=== PATIENT | male | born 1970 | race Caucasian/White ===

== ENCOUNTER 2021-08-31 09:38 | Outpatient (REF) | payer BC, SELFPAY ==
[2021-08-31 10:32] LABS: MANUAL DIFF FLAG NO
[2021-08-31 10:35] LABS: Basophils Percent Auto 0.7 % (0-2); Eosinophils Absolute Auto 0.1 X10*3/uL (0.0-0.4); Eosinophils Percent Auto 1.8 % (0-4); Hematocrit 42.9 % (42.0-52.0); Hemoglobin 14.4 g/dl (14.0-18.0); Imm Gran Abs Auto 0.02 X10*3/uL (0.00-0.03); Imm Gran Pct Auto 0.3 % (0.0-0.4); Lymphocytes Absolute Auto 1.2 X10*3/uL (1.2-4.9); Lymphocytes Percent Auto 19.3 % (20-40); Mean Corpuscular HGB Conc 33.6 g/dl (31.0-36.0); Mean Corpuscular Hemoglobin 28.3 pg (27.0-33.0); Mean Corpuscular Volume 84.3 fL (80.0-98.0); Mean Platelet Volume 10.3 fL (9.4-12.4); Monocytes Absolute Auto 0.5 X10*3/uL (0.1-1.2); Monocytes Percent Auto 7.8 % (2-11); Neutrophils Absolute Auto 4.2 x10*3/uL (2.0-8.3); Neutrophils Percent Auto 70.1 % (45-73); Platelet Count 256 X10*3/uL (160-400); Red Blood Count 5.09 X10*6/uL (4.60-5.80); Red Cell Distribution Width 12.7 % (11.0-16.0); White Blood Count 6.1 X10*3/uL (4.8-10.8)
[2021-08-31 11:16] LABS: Alanine Aminotransferase 60 U/L (0-40); Albumin Level 4.3 g/dL (3.5-5.0); Alkaline Phosphatase 81 U/L (39-117); Aspartate Amino Transferase 37 U/L (5-37); Bilirubin Direct 0.2 mg/dL (0.0-0.5); Bilirubin Total 0.5 mg/dL (0.0-1.0); Total Protein 7.4 g/dL (6.5-8.0)
== END 2021-08-31 09:39 | disposition home or self-care (01) ==
LOC: HO.10HDL 09:38
PROVIDERS: PCP Internal Medicine; Visit Provider Internal Medicine
DX: R10.84 Generalized abdominal pain (principal)
CPT/HCPCS: 36415; 80076; 85025

== ENCOUNTER 2021-10-17 07:56 | Outpatient (REF) | payer BC, SELFPAY ==
--- NOTE | ~2021-10-17 | US_ITS ---
EXAMINATION: US ABDOMEN COMPLETE CLINICAL INFORMATION: Abdominal pain. COMPARISON: None TECHNIQUE: Real-time imaging of the abdominal viscera. FINDINGS: PANCREAS: Normal. ABDOMINAL AORTA: The midabdominal aorta is not well visualized. The upper and distal abdominal aorta are normal in caliber. INFERIOR VENA CAVA: Visualized portions are normal. LIVER: The liver is normal in size. The liver contour is normal. Liver echotexture is increased. No focal hepatic lesion. There is no intrahepatic biliary duct dilatation seen. GALLBLADDER: Normal. The gallbladder is physiologically distended without evidence of stones, sludge, polyps, wall thickening or pericholecystic fluid. COMMON BILE DUCT: Normal in caliber measuring 0.4 cm in diameter. RIGHT KIDNEY: There is a small cyst in the midpole measuring 5 mm. No hydronephrosis or renal calculi. The kidney measures 12.4 cm in maximum dimension. LEFT KIDNEY: Normal. No hydronephrosis. No renal calculi or focal parenchymal lesions. The kidney measures 10.8 cm in maximum dimension. SPLEEN: Normal. The spleen measures 11.5 cm in maximum dimension. FREE FLUID: None. US/US abdomen complete IMPRESSION: Echogenic liver probably representing fatty infiltration. Small right renal cyst. Limited visualization of the mid abdominal aorta.
== END 2021-10-17 07:57 | disposition home or self-care (01) ==
LOC: HO.US 07:56
PROVIDERS: PCP Internal Medicine; Visit Provider Internal Medicine
DX: R10.84 Generalized abdominal pain (principal)
CPT/HCPCS: 76700

== ENCOUNTER 2021-10-30 06:32 | Day surgery (SDC) | payer BC, SELFPAY ==
[2021-10-23 15:30] VITALS: BMI 30.5
--- NOTE | 2021-10-26 14:15 | P.CONAN_ITS ---
Documented by User: Luly Devlin NP 10/26/21 14:16 HPI - Anesthesia Eval Consult details Narrative: 51yo M for Upper Endoscopy and Colonoscopy [facility] Past Medical History Medical History (Updated 10/23/21 @ 15:25 by Samantha Quintana RN) Diverticulitis HTN (hypertension) IBS (irritable bowel syndrome) Renal calculi Surgical History Surgical History (Updated 10/23/21 @ 15:25 by Samantha Quintana RN) H/O colonoscopy Social History Social History (Updated 10/23/21 @ 15:27 by Samantha Quintana RN) Household Members: Spouse Patient Tobacco Use Status: Former Tobacco user Quit Date: 20 yr ago Tobacco use type: Cigarette Use of substances other than those prescribed or required for medical reasons: Yes Substance Use Frequency: Occasionally Are you DNR?: No Advance Directives: No Advance Directives Information Provided: Yes Meds Allergies Allergy/AdvReac Type Severity Reaction Status Date / Time lactose AdvReac Unknown Unknown Verified 10/30/21 07:11 Home Medications Medication Instructions Recorded Confirmed Last Taken Type dicyclomine 10 mg capsule 10 mg PO QID PRN Gastrointestinal 10/23/21 10/23/21 Unknown History Spasms Or Cramping hydrochlorothiazide 25 mg tablet 25 mg PO DAILY 10/23/21 10/23/21 Unknown History losartan 100 mg tablet 100 mg PO DAILY 10/23/21 10/23/21 Unknown History Exam Exam Date and Time: October 26, 2021 1415 Height,Weight and Vital Signs: Height 5 ft 10 in Weight 96.615 kg Pertinent Lab Results Pertinent Lab Results: Laboratory Tests 08/31/21 09:47 WBC 6.1 Hgb 14.4 Hct 42.9 Plt Count 256 Assessment and Plan Assessment Anesthesia Assessment: Chart Reviewed Documented by User: Carlos Tovar MD 10/30/21 07:30 [facility] Past Medical History Medical History (Updated 10/23/21 @ 15:25 by Samantha Quintana RN) Diverticulitis HTN (hypertension) IBS (irritable bowel syndrome) Renal calculi Family History Family history of problems with anesthesia: No Surgical History Surgical History (Updated 10/23/21 @ 15:25 by Samantha Quintana RN) H/O colonoscopy History of Problems with Anesthesia: No Social History Social History (Updated 10/23/21 @ 15:27 by Samantha Quintana RN) Household Members: Spouse Patient Tobacco Use Status: Former Tobacco user Quit Date: 20 yr ago Tobacco use type: Cigarette Use of substances other than those prescribed or required for medical reasons: Yes Substance Use Frequency: Occasionally Are you DNR?: No Advance Directives: No Advance Directives Information Provided: Yes Meds Allergies Allergy/AdvReac Type Severity Reaction Status Date / Time lactose AdvReac Unknown Unknown Verified 10/30/21 07:11 Home Medications Medication Instructions Recorded Confirmed Last Taken Type dicyclomine 10 mg capsule 10 mg PO QID PRN Gastrointestinal 10/23/21 10/23/21 Unknown History Spasms Or Cramping hydrochlorothiazide 25 mg tablet 25 mg PO DAILY 10/23/21 10/23/21 Unknown History losartan 100 mg tablet 100 mg PO DAILY 10/23/21 10/23/21 Unknown History Exam Airway Mallampati Class: III TM Dist: >3cm Neck ROM: Full Loose/Missing/Broken Teeth: No Heart: rrr Lungs: clear Assessment and Plan Final Anesthetic Review Family History of Problems with Anesthesia: No History of Problems with Anesthesia: No ASA Class: II Final Preanesthetic Review: No Changes in Pt Med Stat, Meds/Allgs Chart Reviewed, Consent Obtained/Reviewed and Anes Risks/Benef Reviewed Patient Risk: Low Procedure Risk: Low Anesthetic Plan Anesthetic Plan: MAC: Disposition: Standard PACU
[2021-10-30 07:08] VITALS: BP 120/64; PULSE 68; RESP 16; TEMP 36.2; O2SAT 97
[2021-10-30] MEDS: Lactated Ringers 1,000 ML 100 ML IVCONT (07:27)
[2021-10-30 08:26] VITALS: BP 99/66; PULSE 72; RESP 14; TEMP 36.1; O2SAT 97
--- NOTE | 2021-10-30 08:32 | P.BOP_ITS ---
Brief Operative Note Date of Service: 10/30/21 Pre-op diagnosis: Abdominal pain, Rectal bleeding, Diarrhea Post-op diagnosis: other (Hiatal hernia, Duodenitis, Diverticulosis, Internal hemorrhoids) Procedure: EGD with biopsies, Colonoscopy to the cecum and TI with biopsies Surgeon: Cam Santizo Anesthesia: MAC Was an Past Due Accounts Clerk used for this Procedure?: No Estimated blood loss (mL): 2.0 Pathology: other (A. Descending duodenum B. Gastric antrum C. Ascending colon D. Descending colon) Condition: stable Disposition: PACU
[2021-10-30 08:41] VITALS: BP 118/77; PULSE 61; RESP 16; TEMP 36.2; O2SAT 98
--- NOTE | 2021-10-30 09:06 | OP_ITS ---
SURGEON: Cam Santizo MD INDICATIONS: The patient presents for evaluation of chronic abdominal discomfort, irregular bowel movements, and occasional rectal bleeding. Full consent was obtained from him for both procedures, including risks of bleeding and perforation. PREOPERATIVE DIAGNOSIS: POSTOPERATIVE DIAGNOSIS: PROCEDURE PERFORMED: ESTIMATED BLOOD LOSS: COMPLICATIONS: ANESTHESIA: Monitored anesthesia care. ASSISTANTS: SPECIMENS: PROCEDURE: Esophagogastroduodenoscopy with biopsies, and colonoscopy to the cecum and terminal ileum with biopsies. PREOPERATIVE DIAGNOSES: Gastroesophageal reflux, diarrhea, and rectal bleeding. POSTOPERATIVE DIAGNOSES: Gastroesophageal reflux, diarrhea, rectal bleeding, hiatal hernia, duodenitis, rule out celiac disease, rule out microscopic colitis, diverticulosis, and internal hemorrhoids. DESCRIPTION OF PROCEDURE: The patient was placed in the left lateral decubitus position. The Olympus video gastroscope was passed in the posterior oropharynx and upper esophagus under direct vision. The scope was passed slowly into the distal esophagus. The gastroesophageal junction appeared normal at 36 cm. There was no sign of any esophagitis. The scope was advanced into the stomach and revealed there was a small hiatal hernia. The scope was advanced to the pylorus and the duodenum was cannulated to the descending portion. In the duodenal bulb, there were 2 erosions, but no ulceration or mass. The 2nd and 3rd portions of duodenum appeared normal. Biopsies were obtained. The scope was withdrawn back to the stomach. The gastric antrum and body appeared normal with good peristalsis. Biopsies were obtained from the antrum. The scope was retroflexed visualizing the proximal stomach carefully which appeared normal, without any sign of mass or ulceration. The scope was straightened and withdrawn back in the esophagus. The esophageal mucosa appeared normal. The scope was withdrawn from the patient. He was turned around for colonoscopy. The digital rectal exam revealed no abnormalities. The Olympus video pediatric colonoscope was entered into the rectum and advanced easily to the cecum. Once in the cecum, I did identify normal-appearing cecal pouch with appendiceal orifice and a normal-appearing ileocecal valve. The terminal ileum was cannulated and appeared normal. The scope was withdrawn back in the colon. The entire cecum and ileocecal valve appeared normal. The scope was slowly withdrawn assessing all mucosal surfaces carefully. Preparation was excellent. I did not visualize any sign of polyps, colitis, nor angiodysplasia. There was a mild amount of sigmoid diverticulosis. In the rectum, the scope was retroflexed visualizing internal hemorrhoids, but no other pathology. The rectal mucosa appeared normal. The scope was straightened. I did obtain random biopsies in the ascending and descending colon to rule out microscopic colitis. The scope was withdrawn from the patient. He tolerated the procedures well and was returned to the recovery area in stable condition. IMPRESSION: 1. Hiatal hernia. 2. Duodenitis. 3. Rule out celiac disease. 4. Rule out microscopic colitis. 5. Diverticulosis. 6. Internal hemorrhoids. PLAN: The results of the biopsies will be checked. He does report that his GI symptoms have been fairly stable and he does use dicyclomine on a p.r.n. basis. He was advised not to use any aspirin or NSAIDs for 1 week. Given the presence of some duodenitis and a hiatal hernia, I shall send him home with a prescription to use famotidine 40 mg daily to see if that gives him any other relief from his chronic GI complaints. He was advised to see me in followup in the office. MD KIRK Torres/JENN / [id number] MTDD
== END 2021-10-30 09:12 | disposition home or self-care (01) ==
PROVIDERS: PCP Internal Medicine; Visit Provider Internal Medicine
PROC: (CPT 45380; principal; 2021-10-30 07:30)
DX: K62.5 Hemorrhage of anus and rectum (principal); K57.30 Diverticulosis of large intestine without perforation or abscess without bleeding; K64.8 Other hemorrhoids; K58.9 Irritable bowel syndrome, unspecified; R10.84 Generalized abdominal pain; K29.80 Duodenitis without bleeding; K44.9 Diaphragmatic hernia without obstruction or gangrene; I10 Essential (primary) hypertension; Z79.899 Other long term (current) drug therapy; Z87.442 Personal history of urinary calculi; Z87.891 Personal history of nicotine dependence
CPT/HCPCS: 45380; 43239; 88305; 88342

== ENCOUNTER 2021-11-27 10:00 | Outpatient (REF) | payer BC, SELFPAY ==
[2021-11-29 12:21] LABS: Transglutaminase IgA 12.6 U/mL
[2021-11-29 15:02] LABS: Immunoglobulin A 170 mg/dL (47-310)
[2021-12-03 13:46] LABS: Endomysial IgA Antibody Negative (Negative)
== END 2021-11-27 10:01 | disposition home or self-care (01) ==
LOC: HO.10HDL 10:00
PROVIDERS: Visit Provider Internal Medicine
DX: R19.7 Diarrhea, unspecified (principal)
CPT/HCPCS: 36415; 81382; 82784; 86231; 86364

== ENCOUNTER 2022-01-01 12:43 | Emergency (ER) | payer BC, SELFPAY ==
[2022-01-01 12:58] VITALS: BP 150/71; PULSE 118; RESP 18; TEMP 37.2; O2SAT 97; BMI 30.1
--- NOTE | 2022-01-01 14:05 | ED_ITS ---
HPI - GI Bleed General Chief complaint: General Medical Stated complaint: anal fissure pain Time Seen by Provider: 01/01/22 13:06 Source: patient and family Mode of arrival: ambulatory Limitations: no limitations History of Present Illness HPI Narrative: 51-year-old male with a past medical history of HTN, diverticulosis, IBS, renal calculi and anal fissure presenting to the ER with complaints of worsening rectal pain over the past few days worse today. He reports he has been taking his tramadol and no symptomatic relief. He has also been using a stool softener and no symptomatic relief. Reports that his PCP referred him to Dr. Aparicio the general surgeon for further evaluation treatment although his appointment is not until Saturday. Patient reports he is unable to tolerate the pain after 5 weeks of dealing with this. He denies any fevers, nausea/vomiting, abdominal pain, black or bloody stools, diarrhea, constipation, dysuria, hematuria, rashes, rectal intercourse/trauma or any other symptoms complaints or concerns at this time MD complaint: other (Rectal pain due to anal fissure) Onset (ago): week(s) (5 weeks worsened past 2-3 days) Pain Consistency: constant Severity: severe Relieving factors: none Exacerbating factors: bowel movement Context: hemorrhoids (And anal fissure) Associated symptoms: denies other symptoms Treatments Prior to Arrival: none (Tramadol and stool softeners no symptomatic relief) Related Data Home Medications Medication Instructions Recorded Confirmed dicyclomine 10 mg capsule 10 mg PO QID PRN Gastrointestinal 10/23/21 10/23/21 Spasms Or Cramping hydrochlorothiazide 25 mg tablet 25 mg PO DAILY 10/23/21 10/23/21 losartan 100 mg tablet 100 mg PO DAILY 10/23/21 10/23/21 Previous Rx's Medication Instructions Recorded docusate sodium 100 mg capsule 100 mg PO BID PRN Constipation #14 01/01/22 (Colace) caps hydrocortisone 1 %-pramoxine 1 % 1 appl [place] TID PRN anal fissure #10 01/01/22 rectal foam (Proctofoam HC) grams ketorolac 10 mg tablet 10 mg PO Q8H pain #14 tabs 01/01/22 polyethylene glycol 3350 17 gram 17 g PO BID Constipation #14 ea 01/01/22 oral powder packet (Miralax) Allergies Allergy/AdvReac Type Severity Reaction Status Date / Time lactose AdvReac Unknown Unknown Verified 10/30/21 07:11 Review of Systems Review of Systems: Constitutional : No Weight loss, No Fever, No Chills, No Night Sweats, No Fatigue, No Malaise ENT/Mouth : No Hearing loss, No Ear Pain, No Nasal Congestion, No Sinus Pain, No Hoarseness, No sore throat, No Rhinorrhea, No Swallowing Difficulty Eyes: No Eye Pain, No Swelling, No Redness, No Foreign Body, No Discharge, No Vision Changes Cardiovascular : No Chest Pain, No SOB, No Dyspnea on Exertion, No Orthopnea, No Edema, No Palpitations Respiratory : No Cough, No Sputum, No Wheezing, No Smoke Exposure, No Dyspnea Gastrointestinal : No Nausea, No Vomiting, No Diarrhea, No Constipation, No abdominal Pain, No Hematochezia, No Melena Genitourinary : + rectal pain due to anal fissure, no irregular bleeding, No Dysuria, No Urinary Frequency, No Hematuria, No Urinary Incontinence, No Urgency, No Flank Pain, No Urinary Flow Changes, No Hesitancy Musculoskeletal : No joint pain, No Myalgias, No Joint Swelling Skin : No Skin Lesions, No rash Neuro : No Weakness, No Numbness, No Paresthesias, No Loss of Consciousness, No Dizziness, No Headache Psych : No Anxiety/Panic, No Depression, No SI/HI/AH/VH, No Social Issues, Heme/Lymph: No Bruising, No Bleeding,No Lymphadenopathy Endocrine : No Polyuria, No Polydipsia, No Temperature Intolerance Yes all other systems are reviewed and are negative [facility] Past Medical History Attestation statement: The following information was validated with the patient. Source: old records reviewed, obtained from family and nursing notes reviewed Medical History Diverticulitis HTN (hypertension) IBS (irritable bowel syndrome) Renal calculi Surgical History H/O colonoscopy Social History Social History Household Members: Spouse Patient Tobacco Use Status: Former Tobacco user Quit Date: 20 yr ago Tobacco use type: Cigarette Advance Directives: No Advance Directives Information Provided: Yes Physical Exam Vital Signs: Vital Signs: Last Vital Signs Temp 98.9 F 01/01/22 12:58 Pulse 118 H 01/01/22 12:58 Resp 18 01/01/22 12:58 BP 150/71 H 01/01/22 12:58 Pulse Ox 97 01/01/22 12:58 O2 Del Method 01/01/22 12:58 BMI result Body Mass Index 30.1 vital signs have been reviewed as normal and appeared to be correct. Blood pressure normal Heart rate normal. Respiration rate normal. Temperature normal. Oxygen saturation normal. Appearance: Alert. Oriented X3. No acute distress. Head: Normal external exam. Normocephalic. Atraumatic. Eyes: PERRLA. EOMI. Conjunctiva and sclera normal. Eyelids normal. ENT: Pharynx normal. Uvula midline. Moist mucous membranes. Neck: Normal inspection. Neck supple. FROM. CVS: Normal heart rate and rhythm. Respiratory: No respiratory distress. Painless inspiration. : Cardiovascular Disease Specialist in room- RADHA Funk. Patient noted to have a small tear and the lining the anus consistent with anal fissure. No external hemorrhoids noted. Skin: Skin warm and dry. Normal skin color. Normal skin turgor. No rashes/lesions/lacerations noted. Extremities: Extremities exhibit normal range of motion. Extremities nontender. Neuro: Oriented X 3. No motor deficit. No sensory deficit. Normal steady gait. Course Course Course Narrative: Patient with anal fissure. Denies any other symptoms. Will DC home with symptomatic treatment instructions to follow-up with Dr. Aparicio as scheduled and to return if any new or worsening symptoms. Patient understands agrees with this plan. MDM - GI Bleed Medical Records Attestation: I reviewed the patient's medical records. Discharge Plan Discharge Clinical Impression: Anal fissure Patient Disposition: Home, Self-Care Instructions: Anal Fissure (ED) Prescriptions: New docusate sodium [Colace] 100 mg capsule 100 mg PO BID PRN (Reason: Constipation) Qty: 14 0RF polyethylene glycol 3350 [Miralax] 17 gram powder in packet 17 g PO BID Qty: 14 0RF ketorolac 10 mg tablet 10 mg PO Q8H Qty: 14 0RF Rx Instructions: Patient received Toradol as an IM dose in the ER patient tolerated well Proctofoam HC 1-1 % foam 1 appl [place] TID PRN (Reason: anal fissure) Qty: 10 0RF No Action hydrochlorothiazide 25 mg Tablet 25 mg PO DAILY losartan 100 mg Tablet 100 mg PO DAILY dicyclomine 10 mg Capsule 10 mg PO QID PRN (Reason: Gastrointestinal Spasms Or Cramping) Referrals: Santhosh Aparicio MD [Physician] - (As scheduled on Saturday) Bryson Henderson MD [Primary Care Provider] - 2 days Interventions: ED Discharge Assessment Last Done: 01/01/22 14:54 Discharge Date/Time: 01/01/22 14:55
[2022-01-01] MEDS: Lidocaine 4 % Cream KIT 1 APPL TOPICAL (14:19)
[2022-01-01] MEDS: Ketorolac Tromethamine 60 MG/2 ML VIAL IM (14:34)
[2022-01-01] MEDS: Docusate Sodium 100 MG CAPSULE PO (14:34)
[2022-01-01] MEDS: polyethylene glycoL 3350 17 GM POWD.PACK PO (14:35)
[2022-01-01] MEDS: Hydrocortisone 2.5 % Rectal Cr 30 GM TUBE 1 APPL PR (14:36)
[2022-01-01] MEDS: Lidocaine HCl 2 % Jelly 5 ML TUBE 1 APPL TOPICAL (14:40)
== END 2022-01-01 14:55 | disposition home or self-care (01) ==
PROVIDERS: Emergency Provider Emergency Medicine; PCP Internal Medicine
DX: K60.2 Anal fissure, unspecified (principal); N20.0 Calculus of kidney; I10 Essential (primary) hypertension
CPT/HCPCS: 96372; 99283; 99284; J1885

== ENCOUNTER 2022-01-23 08:34 | Day surgery (SDC) | payer BC, SELFPAY ==
[2022-01-15 15:56] VITALS: BMI 29.7
--- NOTE | 2022-01-22 09:40 | HO.ANESPROP2 ---
Documented by User: Luly Devlin NP 01/22/22 09:41 HPI - Anesthesia Eval Consult details Narrative: 51yo M for EUA, Lateral Internal Sphincterotomy PMFSH Active Problems Active Problems: All Active Problems (Updated 01/15/22 @ 15:52 by Angela Walden, RN) Anal fissure (Acute) Renal calculi (Acute) IBS (irritable bowel syndrome) (Acute) HTN (hypertension) (Acute) Diverticulitis (Acute) Past Medical History Medical History (Updated 01/15/22 @ 15:52 by Angela Walden, RN) Anal fissure Diverticulitis Hiatal hernia HTN (hypertension) IBS (irritable bowel syndrome) Renal calculi Family History Family history of problems with anesthesia: No Surgical History Surgical History (Updated 01/15/22 @ 15:52 by Angela Walden, RN) H/O colonoscopy History of esophagogastroduodenoscopy (EGD) History of Problems with Anesthesia: No Social History Social History Household Members: Spouse Patient Tobacco Use Status: Former Tobacco user Quit Date: 2000 Tobacco use type: Cigarette Years Smoked: 8 Smoked in Last 30 Days: No Use of substances other than those prescribed or required for medical reasons: Yes Substance Use Frequency: Daily Are you DNR?: No Advance Directives: No Advance Directives Information Provided: Yes Meds Allergies Allergy/AdvReac Type Severity Reaction Status Date / Time lactose AdvReac Unknown Unknown Verified 01/23/22 08:40 Home Medications Medication Instructions Recorded Confirmed Last Taken Type dicyclomine 10 mg capsule 10 mg PO QID PRN Gastrointestinal 10/23/21 01/15/22 Unknown History Spasms Or Cramping hydrochlorothiazide 25 mg tablet 25 mg PO DAILY 10/23/21 01/15/22 Unknown History losartan 100 mg tablet 100 mg PO DAILY 10/23/21 01/15/22 Unknown History Exam Exam Date and Time: January 22, 2022 0940 Height,Weight and Vital Signs: Height 5 ft 10 in Weight 93.894 kg Pertinent Lab Results Pertinent Lab Results: Laboratory Tests 08/31/21 09:47 WBC 6.1 Hgb 14.4 Hct 42.9 Plt Count 256 Assessment and Plan Assessment Anesthesia Assessment: Chart Reviewed Final Anesthetic Review Family History of Problems with Anesthesia: No History of Problems with Anesthesia: No Documented by User: Carlos Tovar MD 01/23/22 09:25 PMFSH Past Medical History Medical History (Updated 01/15/22 @ 15:52 by Angela Walden, RN) Anal fissure Diverticulitis Hiatal hernia HTN (hypertension) IBS (irritable bowel syndrome) Renal calculi Surgical History Surgical History (Updated 01/15/22 @ 15:52 by Angela Walden RN) H/O colonoscopy History of esophagogastroduodenoscopy (EGD) Social History Social History Household Members: Spouse Patient Tobacco Use Status: Former Tobacco user Quit Date: 2000 Tobacco use type: Cigarette Years Smoked: 8 Smoked in Last 30 Days: No Use of substances other than those prescribed or required for medical reasons: Yes Substance Use Frequency: Daily Are you DNR?: No Advance Directives: No Advance Directives Information Provided: Yes Meds Allergies Allergy/AdvReac Type Severity Reaction Status Date / Time lactose AdvReac Unknown Unknown Verified 01/23/22 08:40 Home Medications Medication Instructions Recorded Confirmed Last Taken Type dicyclomine 10 mg capsule 10 mg PO QID PRN Gastrointestinal 10/23/21 01/15/22 Unknown History Spasms Or Cramping hydrochlorothiazide 25 mg tablet 25 mg PO DAILY 10/23/21 01/15/22 Unknown History losartan 100 mg tablet 100 mg PO DAILY 10/23/21 01/15/22 Unknown History Exam Airway Mallampati Class: II TM Dist: >3cm Neck ROM: Full Loose/Missing/Broken Teeth: No Heart: rrr Lungs: clear Assessment and Plan Final Anesthetic Review NPO: Yes ASA Class: II Final Preanesthetic Review: No Changes in Pt Med Stat, Meds/Allgs Chart Reviewed, Consent Obtained/Reviewed and Anes Risks/Benef Reviewed Patient Risk: Intermediate Procedure Risk: Low Anesthetic Plan Anesthetic Plan: GA Disposition: Standard PACU
[2022-01-23] VITALS (8 sets, daily range): BP systolic 115–137; BP diastolic 76–96; PULSE 66–81; RESP 16–20; TEMP 36.3–37.1; O2SAT 94–100; BMI 30.1
[2022-01-23] MEDS: Lactated Ringers 1,000 ML 100 ML IVCONT (09:10)
--- NOTE | 2022-01-23 09:25 | MHC.SHP ---
Pre-Procedural Eval Section A Date of Service: 01/23/22 The patient is an INPATIENT: No The History & Physical has been completed within 30 days and I have reviewed it.: Yes Section B Chief Complaint: Anal fissure, unspecified Allergies: Allergies Allergy/AdvReac Type Severity Reaction Status Date / Time lactose AdvReac Unknown Unknown Verified 01/23/22 08:40 Plan I have reviewed the history and physical and performed a pertinent physical examination on my patient. No changes have occurred unless specified.
--- NOTE | 2022-01-23 10:26 | W.PM.OPN ---
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 Examination in the office revealed a deep posterior midline fissure. He understood the technique of sphincterotomy. He was aware of risks, benefits, and alternatives. he was brought to the operating room and placed in prone gerson-knife position under general anesthesia via endotracheal tube. The buttocks were retracted with wide tape laterally. The perianal area was prepped and draped in the usual sterile fashion. A surgical time-out was done. The patient received Cefotan 2 g IV preoperatively Retraction of the buttocks revealed a deep posterior middle fissure, wide, with exposed sphincter fibers. I inflated the perianal area with lidocaine 1%. I inserted the Haley Corral retractor. I examined the anal canal circumferentially. He did have large internal and external hemorrhoids but these were non inflamed and nonthrombosed.There were no lesions seen I proceeded to palpate for the intersphincteric groove on the left side. I made an incision on the skin overlying this using blade 15. I dissected bluntly using fine hemostats to define theinternal sphincter. I positioned the hemostat in the intersphincteric plane to protect external sphincter. I then proceeded to divide the internal sphincter Fibers using electrocautery all the way to the level of the dentate line. I then observed for hemostasis. I then closed the incision with a running 3-0 stitch. Once hemostasis was confirmed I infiltrated the perianal area with Marcaine 0.5% for postop analgesia. the procedure was then completed. The patient tolerated the procedure well. There were no immediate complications. Initial and final counts of sponges and instruments were correct. Estimated blood loss about 5 cc The patient was extubated without difficulty and transferred to the recovery room with stable vital signs.
== END 2022-01-23 12:13 | disposition home or self-care (01) ==
PROVIDERS: PCP Internal Medicine; Visit Provider Surgery
PROC: (CPT 46080; principal; 2022-01-23 10:20)
DX: K60.1 Chronic anal fissure (principal); K64.8 Other hemorrhoids; K64.4 Residual hemorrhoidal skin tags; I10 Essential (primary) hypertension; K58.9 Irritable bowel syndrome, unspecified; Z79.899 Other long term (current) drug therapy; Z87.19 Personal history of other diseases of the digestive system; Z87.442 Personal history of urinary calculi; Z87.891 Personal history of nicotine dependence
CPT/HCPCS: 46080; J2795

== ENCOUNTER 2024-10-23 14:57 | Outpatient (AMB) | payer BC, SELFPAY ==
--- OUTSIDE RECORDS SUMMARY | 2024-10-23 14:58 | XMS_ITS | Clinical Summary ---
Author Organization [facility] Address [address] [facility] [address] [place] [address] Phone Care Team Providers Care Director Of Religious Activities Name Role Phone Milka Dowd MD Unavailable [phone] Bryson Henderson MD Primary Care Provider [phone] Allergies No known active allergies Medications aspirin 81 MG EC tablet Take 1 tablet (81 mg total) by mouth daily. 90 tablet 3 10/25/2023 Active atorvastatin (LIPITOR) 80 MG tablet Take 1 tablet (80 mg total) by mouth nightly at bedtime. 90 tablet 3 11/25/2023 Active amLODIPine (NORVASC) 5 MG tablet Take 1 tablet (5 mg total) by mouth daily. 90 tablet 3 06/01/2024 Active Active Problems Problem Noted Date Diagnosed Date Right groin pain 08/07/2024 Assessment & Plan (08/07/2024 11:31 AM EDT): This is a 54-year-old gentleman who has right groin pain that has been intermittent and relatively severe when it does happen for the past 2 months. He saw his urologist and underwent an exam which found no evidence of inguinal hernia on the left of the right and also an ultrasound that was negative. The patient has no evidence of inguinal hernia here on physical examination. I have ordered a CT scan of the abdomen pelvis to evaluate for inguinal hernia. Once I have the results of the study I will call the patient to let him know the results. If the CAT scan shows a inguinal hernia I will recommend laparoscopic or open approach to repair of the inguinal hernia. I think the patient would benefit most from a laparoscopic repair if he does have a hernia. We would discuss this in further detail once we have the results of the study. Encounters Date Type Department Care Team Description 08/13/2024 1:48 PM EDT - 08/13/2024 11:59 PM EDT Hospital Encounter [address] [address] Magdalene Tello MD Discharge Disposition: Home or Self Care 08/07/2024 11:00 AM EDT Office Visit [facility] [address] [place] [address] [place] [address] Magdalene Tello MD Right groin pain (Primary Dx) 08/07/2024 Procedure [facility], [address] [address] 07/28/2024 Telephone [facility] [address] [place] [address] Unknown, Unknown, MD Appointment 07/24/2024 3:51 PM EDT - 07/24/2024 11:59 PM EDT Hospital Encounter [facility] [place] [address] Gabino Mcguire MD Discharge Disposition: Home or Self Care 07/24/2024 10:40 AM EDT Office Visit [facility] [address], [address] [place] [address] Gabino Mcguire MD Right leg pain (Primary Dx); Coronary artery disease involving [place] coronary artery of [place] heart without angina pectoris; S/P CABG x 3; Essential hypertension; Mixed hyperlipidemia from Last 3 Months Immunizations Immunization Administration Dates Next Due COVID-19 (Pre-12/31) Moderna Vaccine, mRNA, PF 0 06/23/2020 INFLUENZA, SPLIT VIRUS, TRIVALENT W/ PRESERVATIV E IM 02/22/2011,01/04/2010 Influenza Quadrivalent Preservative Free IM 12/10,02/27/2019 Influenza trivalent preservative free intraderma l 02/25/2012 Influenza, Unspecified Formulation 02/11/2008 Tdap 02/25/2012 Family History Medical History Relation Comments Hypertension Father Hypertension Mother Relation Status Comments Brother Alive Father Alive Mother Sister Alive Social History Tobacco Use Types Packs/Day Years Used Date Smoking Tobacco: Former Cigarettes Q uit: 2000 Smokeless Tobacco: Never Tobacco Cessation:Counseling Given: Not Answered Alcohol Use Standard Drinks/Week Comments Not Currently 0 (1 standard drink = 0.6 oz pur e alcohol) Education Answer Date Recorded Are you interested in more education? Not on julio césar e 07/06/2022 Are you concerned about learning? Not on file 07/06/2022 No 07/06/2022 No 07/06/2022 Digital Access Answer Date Recorded No 08/06/2022 No 08/06/2022 Reliable internet access at home? Not on file 08/06/2022 Device with a working camera? Not on file Intimate Partner Violence Answer Date R ecorded Are you denied basic needs s uch as food, clothing, or medical care? No 10/22/2023 In the past 12 months have y ou been in a relationship with a person who hurts, threatens, or tries to control you? No 10/22/2023 Are you denied basic needs s uch as food, clothing, or medical care? No 10/22/2023 In the past 12 months have y ou been in a relationship with a person who hurts, threatens, or tries to control you? 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 on file Not on file Not on file Last Filed Vital Signs Vital Sign Reading Time Taken Comments Blood Pressure 110/68 08/07/2024 11:08 AM EDT Pulse 76 08/07/2024 11:08 AM EDT Temperature 36.5 C (97.7 F) 08/07/2024 11:08 AM EDT Respiratory Rate 18 12/12/2023 9:59 AM EDT Oxygen Saturation 94% 08/07/2024 11:08 AM EDT Inhaled Oxygen Concentration - - Weight 99.4 kg (219 lb 3.2 oz) 08/07/2024 11:08 AM EDT Height 177.8 cm (5' 10 ) 08/07/2024 11:08 AM EDT Body Mass Index 31.45 08/07/2024 11:08 AM EDT Plan of Treatment Upcoming Encounters Date Type Department Care Team (Late st Contact Info) Description 01/29/2025 2:20 PM EST Office Visit [facility] [address] [place] [address] [address]rd Floor, [address] [place] [address] Gabino Mcguire MD [address] [facility] [place], [place] [id number] [email or web address] Due Date Last Done Comments HEPATITIS C SCREENING 05/15/1989 HIV ONE-TIME SCREENING (18-6 5 YEARS) 05/15/1989 COLOGUARD 05/15/2016 COLONOSCOPY 05/15/2016 COLORECTAL CANCER SCREENING 05/15/2016 FIT TEST 05/15/2016 FOBT 05/15/2016 SIGMOIDOSCOPY 05/15/2016 VIRTUAL COLONOSCOPY 05/15/2016 PNEUMOCOCCAL VACCINES (50+ y ears) (1 of 1 - PCV) 05/15/2021 ZOSTER VACCINES (1 of 2) 05/15/2021 Adult Td,Tdap Booster 02/24/2022 02/25/2012 COVID-19 VACCINE (2 - 2023-2 5 season) 2023 06/23/2020 DEPRESSION SCREENING 12/11/2024 12/12/2023 BLOOD PRESSURE 02/07/2025 08/07/2024 SMOKING Hx and SMOKELESS TOB ACCO SCREENING 08/07/2025 08/07/2024 SCREENING FOR DIABETES 10/21/2026 10/22/2023 HEPATITIS A VACCINES Aged Out No long er eligible based on patient's age to complete this topic HIB VACCINES Aged Out No longer eligi ble based on patient's age to complete this topic MENINGOCOCCAL VACCINES (ACWY) Aged Out No longer eligible based on patient's age to complete this topic MENINGOCOCCAL VACCINES (B) Aged Out N o longer eligible based on patient's age to complete this topic Medical Devices Not on file Procedures Procedure Name Priority Date/Time Associated Diagnosis Comments CT ABDOMEN/PELVIS WITH CONTRAST Routine 08/13/2024 2:46 PM EDT Right groin pain US LOWER EXTREMITY VEINS DUPLEX (RIGHT) Routine 07/24/2024 4:12 PM EDT Right leg pain from Last 3 Months Results * CT ABDOMEN/PELVIS WITH CONTRAST (08/13/2024 2:46 PM EDT) Anatomical Region Laterality Modality Abdomen, Pelvis Computed Tomogra phy 08/17/2024 9:11 PM EDT Impressions 08/17/2024 9:31 PM EDT No acute process seen in the abdomen or pelvis. Narrative 08/17/2024 9:[address] ABDOMEN/PELVIS WITH CONTRAST Referring clinician's provided indication for this examination in Epic: * Abdominal pain, hernia suspected TECHNIQUE: Multidetector-row CT of the abdomen and pelvis was performed after administration of intravenous contrast using tailored dose modulation techniques. Images were reconstructed in the axial, coronal, and sagittal planes. COMPARISON: CT ABDOMEN/PELVIS WITHOUT CONTRAST FINDINGS: Lower Chest: Clear lung bases. No effusions. Liver: Scattered subcentimeter hepatic hypodensities, too small to characterize. Patent hepatic vasculature. Biliary: No biliary ductal dilatation. Spleen: No splenomegaly or focal lesions. Pancreas: No masses or ductal dilatation. Adrenal Glands: No nodules. Kidneys/Ureters: No solid masses or hydronephrosis. No stones. Bilateral renal cortical hypodensities, too small to characterize. Bowel: Small hiatus hernia. 6mm lipoma in the proximal duodenum (3:147). No distention or wall thickening. Sigmoid diverticulosis without diverticulitis. Normal appendix. Peritoneum/Retroperitoneum: No free air or fluid. Lymph Nodes: No lymphadenopathy. Pelvic Organs/Bladder: No masses. Underdistended urinary bladder. Vessels: No abdominal aortic aneurysm. Moderate calcified atherosclerotic plaque throughout the abdominal aorta and its branches. Bones/Soft Tissues: No suspicious osteolytic/osteoblastic lesions. Procedure Note Daphne Copeland MD - 08/17/2024 CT ABDOMEN/PELVIS WITH CONTRAST Referring clinician's provided indication for this examination in Epic: *Abdominal pain, hernia suspected TECHNIQUE: Multidetector-row CT of the abdomen and pelvis was performedafter administration of intravenous contrast using tailored dosemodulation techniques. Images were reconstructed in the axial, coronal,and sagittal planes. COMPARISON: CT ABDOMEN/PELVIS WITHOUT CONTRAST FINDINGS: Lower Chest: Clear lung bases. No effusions. Liver: Scattered subcentimeter hepatic hypodensities, too small tocharacterize. Patent hepatic vasculature. Biliary: No biliary ductal dilatation. Spleen: No splenomegaly or focal lesions. Pancreas: No masses or ductal dilatation. Adrenal Glands: No nodules. Kidneys/Ureters: No solid masses or hydronephrosis. No stones. Bilateralrenal cortical hypodensities, too small to characterize. Bowel: Small hiatus hernia. 6mm lipoma in the proximal duodenum (3:147).No distention or wall thickening. Sigmoid diverticulosis withoutdiverticulitis. Normal appendix. Peritoneum/Retroperitoneum: No free air or fluid. Lymph Nodes: No lymphadenopathy. Pelvic Organs/Bladder: No masses. Underdistended urinary bladder. Vessels: No abdominal aortic aneurysm. Moderate calcified atheroscleroticplaque throughout the abdominal aorta and its branches. Bones/Soft Tissues: No suspicious osteolytic/osteoblastic lesions. IMPRESSION: No acute process seen in the abdomen or pelvis. us Magdalene Tello MD IMG CT ABD/PELVIS Final Re sult * US Lower Extremity Veins Duplex (Right) (07/24/2024 4:12 PM EDT) Anatomical Region Laterality Modality Hip Right, Thigh Right, Knee Right, Leg Right, Ankle Right, Foot Right Ultrasound Narrative 07/27/2024 7:31 AM EDT Impression: Right leg is negative for DVT. No mass, pseudoaneurysm, or hematoma identified. Lower Venous Right COMMON FEMORAL VEIN normal compressibility and flow characteristics FEMORAL VEIN normal compressibility and flow characteristics POPLITEAL VEIN normal compressibility and flow characteristics GASTROCNEMIUS normal compressibility and flow characteristics POSTERIOR TIBIAL VEINS normal compressibility and flow characteristics PERONEAL VEINS normal compressibility and flow characteristics GREAT SAPHENOUS VEIN normal compressibility and flow characteristics SMALL SAPHENOUS VEIN normal compressibility and flow characteristics Introductory Comments Techniques used for this study included: color flow Doppler and spectral waveform Doppler. us Gabino Mcguire MD [facility] Final Result from Last [address] [place] [address] [place] [address] [place] [address] [place] [address] [place] [address] Care Teams Director Of Religious Activities Relationship Specialty Start Date End Date Bryson Henderson MD [address] [place] [id number] [email or web address] PCP - General Internal Medicine 07/09/24 Milka Dowd MD Historical LMR Provider 12/29/16 Additional Source Comments The information contained in this document represents components of the legal health record. It is not the complete legal health record.[facility]
--- OUTSIDE RECORDS SUMMARY | 2024-10-23 14:58 | XMS_ITS | Patient Health Record ---
Author Organization [facility] Address [address] [place] [phone] Care Team Providers Care Drag Sawyer Name Role Phone Bryson Henderson MD Primary Care Provider Unavailabl e Cam Santizo Unavailable [phone] Allergies Allergen (clinical drug ingredient) Drug/Non Drug Allergy documented on EMR Reaction Allergy Type Onset Date Status Gluten Gluten Unknown Allergy Active cats (uncoded) Unknown Allergy Activ e Reason For Referral Referring Provider First Name Bryson Referring Provider Last Name Beatriz Referring Provider Speciality Internal M edicine Referred Organization [facility] Referred Provider Cam Santizo Referred Address [address] [place] [address],[place] [address],[place], [place],[address], Referred Provider Specialty Gastroentero logy Referral Priority Routine Referring Provider First Name Bryson Referring Provider Last Name Beatriz Referring Provider Speciality Internal M edicine Referred Organization [facility] Referred Provider Cam Santizo Referred Address [address] [place] [address],[place] [address],[place], [place],[address],[place] Referred Provider Specialty Gastroentero logy General Notes Anastasiia Hidalgo 024 02:22:23 PM EDT > Referral Priority Routine Medications Medication SIG (Take, Route, Frequency, Duration) Notes Start Date End Date Status Metoprolol Succinate ER 25 MG Oral for 90 Active Docusate Sodium 100 MG TAKE 1 CAPSULE BY MOUTH TWICE DAILY NEEDED FOR CONSTIPATION Oral for 30 Not-Taking FeroSul 325 (65 Fe) MG TAKE 1 TABLET BY MOUTH THREE TIMES DAILY Oral for 30 Active Aspirin prn if headache Not- Taking Losartan Potassium-HCTZ 100-25 MG Oral for 90 Not-Taking Dicyclomine HCl 10 MG TAKE 1 TO 2 CAPSUL ES BY MOUTH THREE TIMES DAILY 15 TO 30 MINUTES BEFORE MEALS for 15 Not-Taking Aspirin Low Dose 81 MG TAKE 1 TABLET BY MOUTH DAILY Oral for 90 Active Atorvastatin Calcium 40 MG Oral for 90 Active Immunizations Vaccine Route Administration Date Status Comme nts Influenza Unknown 11/30/2022 Administered Influenza Unknown 02/28/2021 Refused Problems Problem Type SNOMED Code ICD Code Onset Dates Problem Status W/U Status Risk Notes Problem Esophageal reflux (079746921) Esophageal reflux (K21.9) Active confirmed Problem Diarrhea (85914029) Diarrhea (R19.7) Active confirmed Problem Celiac disease (931425654) Celiac disease (K90.0) Active confirmed Problem Generalized abdominal pain (050582957) Generalized abdominal pain (R10.84) Active confirmed Problem Duodenitis (47384696) Duodenitis (K29.80) Active confirmed Problem Hemorrhage of rectum and anus (313409262) Rectal bleed (K62.5) Active confirmed Problem 242997009 Abnormal CT scan , colon (R93.3) Active confirmed Problem 77796460 Irritable bowel syndrome, unspecified type (K58.9) Active confirmed Problem 6724123 Diverticulitis large intestine w/o perforation or abscess w/bleeding (K57.33) Active confirmed Problem Diverticulosis of colon (182906167) Diverticulosis of colon (K57.30) Active confirmed Vital Signs Temperature 97.3 degrees Fahrenheit 12/18/2023 Blood pressure diastolic 00 mm Hg 12/18/2023 Height 70 in 12/18/2023 Blood pressure systolic 000 mm Hg 12/18/2023 Weight 208 lb 8 oz lbs 12/18/2023 BMI 29.91 kg/m2 12/18/2023 Encounters Encounter Location Date Provider [facility] [address] [place] [address] 12/18/2023 Cam Santizo Celiac disease K90.0 Assessments Encounter Date Diagnosis (ICD Code) Assessment Notes Treatment Notes Treatment Clinical Notes Section Notes 12/18/2023 Celiac disease (ICD-10 - K90.0) Continue the gluten-free diet Overall, Gonzalo appears to be doing very well from a GI standpoint and in general given his recent heart surgery. We did review the underlying diagnosis of celiac disease and I did recommend he stay as strict a gluten-free diet as possible. Other than that I don't think he needs any particular intervention on my part at this time. We did review that he will be due for a followup screening colonoscopy in 2031. I will plan to see him in one year for a followup visit but did advise him to certainly contact me prior to that if he has any problems or questions I can be of assistance with. Gonzalo was comfortable with this plan. Thank you again for allowing me to participate in Gonzalo's care. I shall continue to keep you advised of his progress. Plan Of Treatment Pending Test Test Name Order Date LIVER PROFILE 08/31/2021 IRON + IBC (FE) 11/04/2021 VITAMIN B12 AND FOLATE 11/04/2021 CBC w DIFF 11/04/2021 CBC w DIFF 08/31/2021 CELIAC PANEL #10 11/04/2021 CELIAC PANEL #10 11/23/2021 US ABD 08/31/2021 Ferritin 11/04/2021 Future Test Test Name Order Date COLONOSCOPY 12/08/2015 UPPER GI ENDOSCOPY 08/31/2021 COLONOSCOPY 08/31/2021 Next Appt Details Provider Name:Cam Carrillo Sukhdev , 12/17/2024 09:00:00 AM, [address] [place] [address], [address], [place], [address], Insurance Providers Payer Name Payer Address Payer Phone Subscriber Number Group Number Insured Name Patient Relationship to Insured Coverage Start Date Coverage End Date [facility] [employer] CLAIM[employer] [address] [place] [address] [id number] JOSRGONZALO OGLESBY Self - patient is the insured Medical (General) History Medical History History ICD Code Denies SD,DM,CVA,Lung disease,renal dise ase Sigmoid diverticulitis in 2015-documented on a CAT scan at [facility]-treated with outpatient antibiotics Kidney stone 2019 Colonoscopy 10/2016 with only hyperplasti c polyps removed Lactose intolerance Presumed IBS-neg celiac disease labs in 2015 Celiac disease diagnosed by duodenal biopsies in October of 2021. There was moderate villous blunting and increased intraepithelial lymphocytes noted. Routine laboratories for celiac disease were negative but a [facility] panel was positive, including genetic haplotype testing(scanned in to the documents section) Upper endoscopy in October of 2021 also had gastric biopsies negative for H. pylori, as well as the above positive duodenal biopsies for celiac disease Abdominal ultrasound October 2021 revealed fatty liver but was negative for gallstones. Colonoscopy October 2021 was negative for polyps, inflammatory bowel disease, and microscopic colitis Coronary artery disease with a three-vessel bypass at the end of October,. He did not have a SD Surgical History Surgery Date(Month/Year) Anal fissure treated with sp hincterotomy by Dr. Aparicio in fall 3V CABG 10/2023
[2024-10-23 15:02] VITALS: BP 130/96; PULSE 78; O2SAT 97; BMI 32.0
--- NOTE | 2024-10-23 15:02 | A.OFFVIS_ITS ---
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 Patient states witnessed apnea/gasping/s noring. Wakes up 4-5x night. Patient had heart surgery last year and had episode of waking up gasping. Patient has mouth gaurd. No history of sleep study. Accompanied by: Self / Same As Patient Allergies cat dander Allergy (Unknown, Verified 10/23/24 15:08) Unknown lactose Adverse Reaction (Unknown, Verified 10/23/24 15:08) Unknown HPI Comments Details: 54 year old male referred to us for a sleep apnea evaluation Dr. Herman, his PCP. He snores loudly and gurgles for air and his has to nudge him to wake up. He had a CABG procedure on Nov 08, 2023. He goes to bed at 10:30 and gets up at 6am.He goes to the bathroom at least 5x per night. 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 He feels chronically fatigue. Denies morning headaches. Denies bruxism, and or clenching his jaw. He uses a mouth guard at night which helps decrease the snoring. His memory, and mood are stable, though sometimes gets anxious. He denies RLS symptoms, denies burning, tingling and neuropathy. He notices moderate muscle twitching, mainly in calves. His diet is okay, he walks daily from 15min to an hour depending on the pain level due to a recent groin injury. Today he notices BP is slightly elevated 130/96, he is on amlodipine 10mg po, will try to take the amlodipine 5mg in the AM and 5mg in the PM, to see if that improves his BP. He denies smoking and alcohol use is socially. He would like to have an in lab sleep study due to his cardiovascular symptoms. [facility] Medical History Hiatal hernia Anal fissure HTN (hypertension) IBS (irritable bowel syndrome) Renal calculi Diverticulitis Surgical History History of esophagogastroduodenoscopy (EGD) H/O colonoscopy Social History Household Members: Spouse Patient Tobacco Use Status: Former Tobacco user Tobacco use type: Cigarette Years Smoked: 8 Physical Exam Vital Signs: Last Vital Signs Pulse 78 10/23/24 15:02 BP 130/96 H 10/23/24 15:02 Pulse Ox 97 10/23/24 15:02 Oxygen Delivery Method Room Air 10/23/24 15:02 BMI result Body Mass Index 32.0 Const General: cooperative, comfortable and anxious Nutritional Appearance: overweight Orientation/consciousness: patient oriented x3 HEENT Face and sinus: Yes face symmetric Teeth and gingiva: other (mallampti score is 3) Eyes Pupils: Equal, round and reactive pupils present Resp Effort & Inspection: normal respiratory effort and able to speak in complete sentences Neuro General: patient oriented x3 and moves all extremities Cranial nerves: Yes Facial sensation intact/muscles of mastication intact, Yes Equal, round and reactive pupils present, Yes Normal accommodation reflex present, Yes Normal facial strength present, Yes Midline tongue present, Yes Ability to bilaterally rotate head present and Yes Ability to bilaterally elevate shoulders present Cognition (Neuro): normal cognition Gait exam (Neuro): Normal gait present Motor exam (neuro): 5/5 motor strength present throughout and Normal motor muscle tone present throughout Psych Appearance: grossly normal Mental Status: mental status grossly normal Thought process: Normal thought process present Thought content: Normal thought content present Assessment & Plan Assessment & Plan (1) Excessive daytime sleepiness: Code(s): G47.19 - Other hypersomnia Category: Medical (2) Hx of CABG: Code(s): Z95.1 - Presence of aortocoronary bypass graft Category: Surgical Plan PSG in lab due to cabg and r/o SHARAN. Labs r/o deficiencies for Excessvie daytime fatigue. complete the following fasting labs to rule out deficiencies. CBC/CMP/ B12/Folate Vit D/ TSH/ Homocysteine and MMA/ Ferritin. f/u in 3 months Orders: Orders RT PSG in-lab sleep study 10/23/24 G47.19 - Other hypersomnia, Z95.1 - Presence of aortocoronary bypass graft Patient Instructions: Sleep Hygiene provided: set a scheduled bedtime and wake time to help regulate the circadian rhythm and balance the release of pituitary hormones. Sleep in a dark room, temperatures below 68 degrees, and no devices n bed. Limit caffeinated products 6 hours prior to bed, and limit fluids 2-4 hours prior to bed. Gentle night yoga, diffusing essential oils, and playing soft music can be relaxing. Coding Level of Care Code New Pt Level 4 (24561) Diagnoses Excessive daytime sleepiness G47.19 Hx of CABG Z95.1 Sleep Questionnaire Difficulty falling asleep: No Difficulty staying asleep?: Yes Number of arousals: 4 Snoring: Yes Witnessed apneas: Yes Gasping arousals: Yes Nocturia: Yes GERD: No Vivid dreams: No Acting out dreams: No Abnormal behavior in sleep: No Abnormal movements in sleep: No Morning headaches: No Excessive daytime sleepiness: No Daytime naps: No Restless legs: Yes (calves move alot twitching) Hallucinations: No Sleep paralysis: No Drop attacks: No Sleep Study: No CPAP: No
== END 2024-10-23 16:16 | disposition home or self-care (01) ==
LOC: HO.HSMS 14:57
PROVIDERS: PCP Internal Medicine; Visit Provider Physician Assistant Medical
DX: G47.19 Other hypersomnia (principal); Z95.1 Presence of aortocoronary bypass graft
CPT/HCPCS: 99204

== ENCOUNTER → 2024-12-02 19:30 | Outpatient (REF) | payer BC, SELFPAY ==
--- OUTSIDE RECORDS SUMMARY | 2023-12-11 12:20 | XMS_ITS ---
Author Organization [facility] Address [address] [place] [address] [address] [place] [phone] Care Team Providers Care Private Equity Associate Name Role Phone Bryson Henderson MD Primary Care Provider Cam Mccabe [phone] REASON FOR VISIT Patient presents today for celiac disease Encounters Encounter Location Date Provider Diagnosis [facility] [address] [place] [address] [place] [phone] 12/11/2023 Cam Santizo Plan Of Treatment Next Appt Details Provider Name:Cam Santizo , 12/17/2024 09:00:00 AM, [address] [place] [address], [address], [place], [address], Progress Notes * GONZALO CARTERDOB:1970 (54 yo M)Acc No.[id number]:12/11/2023 Progress Notes Patient: Cristian BRINKMilena GONZALO Turner Provider: Sriram Santizo MD :1970 A ge:53 Y S ex:Male Date:12/11/2023 Address:[address] [place] [address] Pcp:Bryson Henderson MD Subjective: * Chief Complaints: * 1 . Patient presents today for celiac disease. * Medical History: Objective: * Vitals: Assessment: Plan: * Treatment: * * The named appointment provid er may or may not be the originator of this progress note, and it is not deemed complete until electronically signed by the appointment provider. Sign off status: Pending * Provider: Sriram Santizo MD Date: 1 Generated for Thony baeza/Hugo/Margot on: 0 12/02/2024 08:17 PM EDT
--- OUTSIDE RECORDS SUMMARY | 2024-12-02 20:18 | XMS_ITS | Encounter Summary ---
Author Organization [facility] Address [address] [place] [address] Phone Care Team Providers Care Adjunct Professor Of English Name Role Phone Milka Dowd MD Unavailable [phone] Opal Henry MD Unavailable [phone] Bryson Henderson MD Primary Care Provider +- Milka Dowd MD Primary Care Provider [phone] Milka Dowd MD Primary Care Provider [phone] Bryson Henderson MD Primary Care Provider + Encounter Details Date Type Department Care Team (Late st Contact Info) Description 11/14/2019 Procedure Pass [facility], Ct Scan - [address] [address] Social History Tobacco Use Types Packs/Day Years Used Date Smoking Tobacco: Never Smokeless Tobacco: Never Alcohol Use Standard Drinks/Week Comments Not Currently 0 (1 standard drink = 0.6 oz pur e alcohol) Sex and Gender Information Value Date Recorded Sex Assigned at Male 05/18/2019 10:47 PM EDT Legal Sex Male 9:33 PM EDT Gender Identity Male 05/18/2019 10:47 PM EDT Sexual Orientation Straight 05/18/2019 10 :47 PM EDT documented as of this encounter Plan of Treatment Upcoming Encounters Date Type Department Care Team (Late Contact Info) Description 01/29/2025 2:20 PM EST Office Visit [facility] [address] [place] [address] [address]rd Floor, [address] [place] [address] Gabino Mcguire MD [address] [place] [address], [address] [address] [email or web address] documented as of this encounter Visit Diagnoses Not on filedocumented in this encounter Care Teams Adjunct Professor Of English Relationship Specialty Start Date End Date Bryson Henderson MD [address] [place] [address] Orthopedics Sports [facility], [place] [address] [email or web address] PCP - General Internal Medicine 11/14/19 12/07/19 Milka Dowd MD PCP - General Family Medicine 12/08/19 10/21/23 Milka Dowd MD [address] [place] [phone] [email or web address] PCP - General Family Medicine 10/22/23 07/08/24 Bryson Henderson MD [address] [place] [address] [email or web address] PCP - General Internal Medicine 07/09/24 Milka Dowd MD Historical LMR Provider 12/29/16 Opal Henry MD [address] [place] [address] Orthopedics Sports [facility], [facility] [place] [address] [email or web address] Historical LMR Provider 12/29/16 documented as of this encounter Additional Source Comments The information contained in this document represents components of the legal health record. It is not the complete legal health record.[facility]
--- OUTSIDE RECORDS SUMMARY | 2024-12-02 20:18 | XMS_ITS | Clinical Summary ---
Author Organization [facility] Address [address] [facility] [address] [place] [address] Phone Care Team Providers Care Pipe Setter Name Role Phone Milka Dowd MD Unavailable [phone] Bryson Henderson MD Primary Care Provider [phone] Allergies No known active allergies Medications amLODIPine (NORVASC) 5 MG tablet Take 1 tablet (5 mg total) by mouth daily. 90 tablet 3 5 Active aspirin 81 MG EC tablet Take 1 tablet (81 mg total) by mouth daily. 90 tablet 3 5 Active rosuvastatin (CRESTOR) 20 MG tablet Take 1 tablet (20 mg total) by mouth daily. 90 tablet 3 5 Active atorvastatin (LIPITOR) 80 MG tablet Take 1 tablet (80 mg total) by mouth nightly at bedtime. 90 tablet 3 4 11/10/19 25 Discontinu ed(No CancelRX) Active Problems Problem Noted Date Diagnosed Date [...] Encounters Date Type Department Care Team Description 11/09/2024 Orders Only [facility] [address] [place] [address] [address]rd Floor, [address] [place] [address] Gabino Mcguire MD S/P CABG x 3 (Primary Dx) 11/02/2024 Refill [facility] [address], [address] [place] [address] Gabino Mcguire MD Medication Refill 10/30/2024 Refill [facility] [address], [address] [place] [address] Gabino Mcguire MD Medication Refill from Last 3 Months Immunizations Immunization Administration [...] Description 01/29/2025 2:20 PM EST Office Visit [facility] [address] [place] [address] [address]rd Floor, [address] [place] [address] Gabino Mcguire MD [address] [facility], [address] [place] [address] [email or web address] Health Maintenance Due Date Last Done Comments HEPATITIS C SCREENING 05/15/1989 HIV ONE-TIME SCREENING (18-65 YEARS) 05/15/1989 COLOGUARD 05/15/2016 COLONOSCOPY 05/15/2016 COLORECTAL CANCER SCREENING 05/15/2016 FIT TEST 05/15/2016 FOBT 05/15/2016 SIGMOIDOSCOPY 05/15/2016 VIRTUAL COLONOSCOPY 05/15/2016 PNEUMOCOCCAL VACCINES (50+ years) (1 of 1 - PCV) 05/15/2021 ZOSTER VACCINES (1 of 2) 05/15/2021 Adult Td,Tdap Booster 02/24/2022 02/25/2012 INFLUENZA VACCINE (#1) 2024 , 02/27/2019, 02/25/2012, Additional history exists COVID-19 VACCINE ( - season) 2024 06/23/2020 DEPRESSION SCREENING 12/11/2024 12/12/2023 SMOKING Hx and SMOKELESS TOBACCO SCREENING 08/07/2025 08/07/2024 SCREENING FOR DIABETES 10/21/2026 [...] this topic Medical Devices Not on file Insurance [facility] [place] [address] [place] [address] [place] [address] Care Teams Pipe Setter Relationship Specialty Start Date End Date Bryson Henderson MD [address] [place] [address] [email or web address] PCP - General Internal Medicine 07/09/24 Milka Dowd MD [email or web address] Historical LMR Provider 12/29/16 Additional Source Comments The information contained in this document represents components of the legal health record. It is not the complete legal health record.[facility]
--- OUTSIDE RECORDS SUMMARY | 2024-12-02 20:18 | XMS_ITS | Patient Health Record ---
Author Organization [facility] Address [address] [place] [address] Care Team Providers Care Scientific Affairs Manager Name Role Phone Bryson Henderson MD Primary Care Provider Unavailblaine e Cam Santizo Unavailable [phone] Allergies Allergen (clinical drug ingredient) Drug/Non Drug Allergy documented on EMR Reaction Allergy Type Onset Date Status Gluten Gluten Unknown Allergy Active cats (uncoded) Unknown Allergy Activ e Reason For Referral Reason [email or web address] Referring Provider First Name Bryson Referring Provider Last Name Beatriz Referring Provider Speciality Internal Medicine Referred Organization [facility] Referred Provider Cam Santizo Referred Address [address] [place] [address],[address],[place], [place],[address], Referred Provider Specialty Gastroenterology General Notes Anastasiia Hidalgo 2024 01:53:36 PM > requested [facility] referral from Dr. Bryson Henderson for office visit with Dr. Santizo on [phone] Referral Priority Routine Medications Medication SIG (Take, [...] W/U Status Risk Notes Problem Esophageal reflux (831917535) Esophageal reflux (K21.9) Active confirmed Problem Diarrhea (18802326) Diarrhea (R19.7) Active confirmed Problem Celiac disease (631732405) Celiac disease (K90.0) Active confirmed Problem Generalized abdominal pain (412239984) Generalized abdominal pain (R10.84) Active confirmed Problem Duodenitis (29229608) Duodenitis (K29.80) Active confirmed Problem Hemorrhage of rectum and anus (623975271) Rectal bleed (K62.5) Active confirmed Problem 723637914 Abnormal CT scan , colon (R93.3) Active confirmed Problem 40695223 Irritable bowel syndrome, unspecified type (K58.9) Active confirmed Problem 0505512 Diverticulitis large intestine w/o perforation or abscess w/bleeding (K57.33) Active confirmed Problem Diverticulosis of colon (662619413) Diverticulosis of colon (K57.30) Active confirmed Vital Signs Temperature 97.3 degrees Fahrenheit 12/18/2023 Blood pressure diastolic 00 mm Hg 12/18/2023 Height 70 in 12/18/2023 Blood pressure systolic 000 mm Hg 12/18/2023 Weight 208 lb 8 oz lbs 12/18/2023 BMI 29.91 kg/m2 12/18/2023 Encounters Encounter Location Date Provider Diagnosis [facility] [address] [place] [address] 12/18/2023 Cam Santizo Celiac disease K90.0 Assessments [...] CBC w DIFF 08/31/2021 CELIAC PANEL #10 11/23/2021 CELIAC PANEL #10 11/04/2021 US ABD 08/31/2021 Ferritin 11/04/2021 Future Test Test Name Order Date COLONOSCOPY 12/08/2015 UPPER GI ENDOSCOPY 08/31/2021 COLONOSCOPY 08/31/2021 Next Appt Details Provider Name:Cam Santizo , 12/17/2024 09:00:00 AM, [address] [place] [address], [address], [place], [address], Insurance Providers Payer Name Payer Address Payer Phone Subscriber Number Group Number Insured Name Patient Relationship to Insured Coverage Start Date Coverage End Date [facility] [employer] CLAIMS [address] [place] [address] [id number] [id number] Abbott Self - patient is the insured Medical (General) History Medical History History ICD Code Denies PA,DM,CVA,Lung disease,renal dise ase Sigmoid diverticulitis in 2015-documented on a CAT scan at [facility]-treated with outpatient antibiotics Kidney stone 2019 Colonoscopy 10/2016 with only hyperplasti c polyps removed Lactose intolerance Presumed IBS-neg celiac disease labs in 2015 Celiac disease diagnosed by duodenal biopsies in October of 2021. There was moderate villous blunting and increased intraepithelial lymphocytes noted. Routine laboratories for celiac disease were negative but a [employer] panel was positive, including genetic haplotype testing(scanned [...] of October,. He did not have a PA Surgical History Surgery Date(Month/Year) Anal fissure treated with sp hincterotomy by Dr. Aparicio in fall 3V CABG 10/2023
--- OUTSIDE RECORDS SUMMARY | 2024-12-02 20:18 | XMS_ITS | Encounter Summary ---
Author Organization [facility] Address [address] [facility] [address] [place] [address] Phone Care Team Providers Care Curriculum Specialist Name Role Phone Milka Dowd MD Unavailable [phone] Milka Dowd MD Primary Care Provider [phone] Bryson Henderson MD Primary Care Provider [phone] Reason for Referral * MRI/CAT Scan - Closed Specialty Diagnoses / Procedures Referred By Contursula houston Referred To Contact Radiology Diagnoses Abnormal stress test Procedures NC Myocardial Perfusion Pharmacologic Stress Multiple NC Myocardial Perfusion Exercise Multiple Luly Ramos PA [address] [place] [address] Phone: tel: fax: [email or web address] Referral ID Status Reason Start Date Expiration Date Visits Re quested Visits Authorized [id number] Closed 10/22/2023 12/20/2023 1 1 Encounter Details Date Type Department Care Team (Late st Contact Info) Description 10/25/2023 Ancillary Orders [facility] [address] [place] [address] 3rd Floor, [address] [place] [address] Luly Ramos PA [address] [place] [address] [email or web address] Abnormal stress test (Primary Dx) Social History Tobacco Use Types Packs/Day Years [...] Description 01/29/2025 2:20 PM EST Office Visit [facility] [address] [place] [address] 3rd Floor, [address] [place] [address] Gabino Mcguire MD [address] [place] [address], [address] [address] [email or web address] documented as of this encounter Results * NC Myocardial Perfusion Pharmacologic Stress Multiple (10/25/2023 1:44 PM EDT) Max Predicted Heart Rate 168 bpm Stress/rest perfusion ratio 1.04 Nuc Stress EF 65 % SNMDIAVOL 98.0 mL SNMSYSVOL 34.0 mL Nuc Rest EF 62 % RNMDIAVOL 92.0 mL RNMSYSVOL 35.0 mL Anatomical Region Laterality Modality Heart, Vascular Ultrasound Narrative 10/25/2023 5:24 PM EDT Abnormal myocardial perfusion imaging. There is a medium in size, moderate intensity reversible defect involving the mid to distal inferolateral gonzalez. TID ratio is normal at 1.04. LVEF was 62% at rest and 65% post-rest. Conclusion: This is an abnormal nuclear imaging suggestive of ischemia in the inferolateral wall. The patient has been arranged to undergo cardiac catheterization at [facility] in the coming days. Please see my consultation note from this same date 10/24 for further details. Stress Findings NUCLEAR REPORT: TYPE OF STUDY: Myocardial Perfusion Imaging after a Walking Regadenoson protocol with gated SPECT. PROTOCOL USED: One day Regadenoson rest-stress protocol in the supine and prone position. Images were obtained in gated tomographic technique. Images were processed in SPECT format, reconstructed tomographically and compared lezn-[id number]-ghie in short axis, horizontal long axis and vertical long axis. DOSE: Technetium 99m Sestamibi 7.2 mCi injected intravenously in the right arm antecubital vein at rest on 10/25/2023 with post injection scan time of 60 minutes. Technetium 99m Sestamibi 21.3 mCi injected intravenously in the right arm antecubital vein after Regadenoson infusion on 10/25/2023 with post injection scan time of 40 minutes. Overall image quality is good. No motion artifact is present. ECG STRESS REPORT: DESTIN PROTOCOL CONVERTED TO A WALKING REGADENOSON STUDY The Nuclear Stress Test started as Destin protocol and converted to walking pharmacologic study due to significantly worsening anginal symptoms not near target heart rate. Mendel Friend received 0.4 mg of Regadenoson after walking on the treadmill for 5:20 minutes. Regadenoson was given IV push over 10 seconds as per protocol by Salbador Juárez (ENRIQUETA) immediately followed by injection of Tc99m Sestamibi by Jeet Bundy, the cardiac cath technologist. 1. EKG: Baseline EKG showed sinus rhythm without significant ST or T wave abnormality. Following administration of lexiscan there were ECG changes concerning for ischemia: 0.5-[address] depressions in leads I and aVL; [address] depressions leads II associated with 0.5 mm elevations in lead III; 0.5-[address] depressions in V2 V 3 2. SYMPTOMS: With exercise patient developed significant progressive left-sided chest pressure without radiation to get a level of 7/10, associated with nausea, persisted despite reversal of regadenoson with aminophylline, finally dissipated after approximately 11 minutes of seated recovery 3. PHYSIOLOGY: Resting HR was 67 bpm. After some exercise and administration of Lexiscan injection, HR 130 bpm. Blood pressure: 138/84 at rest, 160/100 following administration of lexiscan, and 140/100 on discharge from stress lab. 4. ARRHYTHMIAS: Rare isolated PVC Conclusion: ECG portion of nuclear stress test with ECG changes concerning for ischemia and with symptoms concerning for angina. Nuclear images pending and will be reported separately. See attached stress report for full details. Salbador Juárez NP Stress Function Defect Left ventricular global function is normal during stress. Stress ejection fraction is 65%. The stress end diastolic cavity size is normal. Stress end diastolic size: 98.0 mL. The stress end systolic cavity size is normal. Stress end systolic size: 34.0 mL. Rest Function Defect Left ventricular global function is normal at rest. Resting ejection fraction was 62%. The rest end diastolic cavity size is normal. Rest end diastolic size: 92.0 ml. The rest end systolic cavity size is normal. Rest end systolic size: 35.0 mL. Nuclear Prior Study There is no prior study available for comparison. Nuclear Ancillary Finding There is no evidence of transient ischemic dilation (TID). The TID ratio is 1.04, which is normal. Perfusion Scoring Resting Summed Score: 1 Percent Normal: 1.47% Mild count reduction in the following segments: apical lateral. All other segments are normal. SUPINE IMAGING REST Perfusion Scoring Stress Summed Score: 8 Percent Normal: 11.76% Absence of uptake in the following segments: apical lateral. Moderate count reduction in the following segments: mid inferolateral and mid anterolateral. All other segments are normal. SUPINE IMAGING STRESS Perfusion Scores: SRS Score: 1 Percentage Abnormal: 1.47% Perfusion Scores: SSS Score: 8 Percentage Abnormal: 11.76% Perfusion Scores: SDS Score: 7 Percentage Abnormal: 10.29% Procedure Note Gabino Mcguire MD - 10/25/2023 Abnormal myocardial perfusion imaging. There is a medium in size, moderate intensity reversible defect involvingthe mid to distal inferolateral gonzalez. TID ratio is normal at 1.04. LVEF was 62% at rest and 65% post-rest. Conclusion: This is an abnormal nuclear imaging suggestive of ischemia in theinferolateral wall. [facility] Please see my consultation note from this same date 10/24 for furtherdetails. us Luly SUERO CV NM CARDIAC Final Result documented in this encounter Visit Diagnoses Diagnosis Abnormal stress test- Primary Other nonspecific abnormal cardiovascular system function study Abnormal stress test- Primary Other nonspecific abnormal cardiovascular system function study documented in this encounter Care Teams Curriculum Specialist Relationship Specialty Start Date End Date Milka Dowd MD [address] [place] [address] [email or web address] PCP - General Family Medicine 10/22/23 07/08/24 Bryson Henderson MD [address] [place] [address] [email or web address] PCP - General Internal Medicine 07/09/24 Milka Dowd MD [email or web address] Historical LMR Provider 12/29/16 documented as of this encounter Additional Source Comments The information contained in this document represents components of the legal health record. It is not the complete legal health record.[facility]
--- OUTSIDE RECORDS SUMMARY | 2024-12-02 20:18 | XMS_ITS | Encounter Summary ---
Author Organization [facility] Address [address] [facility] [address] [place] [address] Phone Care Team Providers Care Evp And Chief Operating Officer Name Role Phone Milka Dowd MD Unavailable [phone] Opal Henry MD Unavailable [phone] Bryson Henderson MD Primary Care Provider [phone] Milka Dowd MD Primary Care Provider [phone] Milka Dowd MD Primary Care Provider [phone] Bryson Henderson MD Primary Care Provider [phone] Encounter Details Date Type Department Care Team (Latest Contact Info) Description 12/02/2019 Transcribe Orders Virtual Department [address] [place] [address] Etienne Elizabeth MD [address] [place] [address], [address] [address] [email or web address] Calculus of ureter (Primary Dx); Unspecified renal colic; Calculus of kidney Social History Tobacco Use Types Packs/Day Years [...] Description 01/29/2025 2:20 PM EST Office Visit [facility] [address] [facility] 3rd Floor, [address] [place] [address] Gabino Mcguire MD 22 [facility], [address] [place] [address] [email or web address] documented as of this encounter Results * US Kidneys and Bladder (12/08/2019 11:47 AM EDT) Anatomical Region Laterality Modality Abdomen, Kidney Ultrasound 12/08/2019 11:5 1 AM EDT Impressions 12/08/2019 11:53 AM EDT 1.Resolution mild right hydronephrosis. 2.No evidence of nephrolithiasis. 3.Small postvoid bladder residual. Narrative 12/08/2019 11:53 AM EDT COMPARISON: CT abdomen pelvis 11/14/2019. RENAL AND BLADDER ULTRASOUND FINDINGS: Bladder: Prevoid volume is 123 cc. Postvoid volume is 7 cc or 6%. Ureteral jets are visualized. No bladder wall thickening, masses or calculi. Kidneys: Right kidney measures 12 x 5 cm. No hydronephrosis, masses or calculi. Cortical echogenicity and thickness are normal. No perinephric fluid collections. Left kidney measures 11 x 6 cm. No hydronephrosis, masses or calculi. Cortical echogenicity and thickness are normal. No perinephric fluid collections. Procedure Note Dav Diaz MD - 12/08/2019 COMPARISON: CT abdomen pelvis 11/14/2019. RENAL AND BLADDER ULTRASOUND FINDINGS: Bladder: Prevoid volume is 123 cc. Postvoid volume is 7 cc or 6%.Ureteral jets are visualized. No bladder wall thickening, masses orcalculi. Kidneys: Right kidney measures 12 x 5 cm. No hydronephrosis, masses or calculi.Cortical echogenicity and thickness are normal. No perinephric fluidcollections. Left kidney measures 11 x 6 cm. No hydronephrosis, masses or calculi.Cortical echogenicity and thickness are normal. No perinephric fluidcollections. IMPRESSION: 1.Resolution mild right hydronephrosis. 2.No evidence of nephrolithiasis. 3.Small postvoid bladder residual. Etienne Elizabeth MD [facility] Final Result documented in this encounter Visit Diagnoses Diagnosis Calculus of ureter- Primary Unspecified renal colic Calculus of kidney Calculus of ureter Unspecified renal colic Calculus of kidney documented in this encounter Care Teams Evp And Chief Operating Officer Relationship Specialty Start Date End Date Bryson Henderson MD [address] [place] [address] Orthopedics & Sports Medicine, [place] [address] [email or web address] PCP - General Internal Medicine 11/14/19 12/07/19 Milka Dowd MD PCP - General Family Medicine 12/08/19 10/21/23 Milka Dowd MD [address] [place] [address] [email or web address] PCP - General Family Medicine 10/22/23 07/08/24 Bryson Henderson MD [address] [place] [address] [email or web address] PCP - General Internal Medicine 07/09/24 Milka Dowd MD Historical LMR Provider 12/29/16 Opal Henry MD [address] [place] [address] Orthopedics & Sports Medicine, [facility] [place] [address] [email or web address] Historical LMR Provider 12/29/16 documented as of this encounter Additional Source Comments The information contained in this document represents components of the legal health record. It is not the complete legal health record.[facility]
--- OUTSIDE RECORDS SUMMARY | 2024-12-02 20:18 | XMS_ITS | Encounter Summary ---
Author Organization [facility] Address [address] [place] [address] Phone Care Team Providers Care Curriculum Development Manager Name Role Phone Milka Dowd MD Primary Care Provider [phone] Milka Dowd MD Unavailable [phone] Opal Henry MD Unavailable [phone] Bryson Henderson MD Primary Care Provider +- Milka oDwd MD Primary Care Provider [phone] Milka Dowd MD Primary Care Provider [phone] Bryson Henderson MD Primary Care Provider [phone] Reason for Referral * MRI/CAT Scan - Closed Specialty Diagnoses / Procedures Referred By Contac t Referred To Contact Radiology Diagnoses Injury of head, initial encounter Post-traumatic headache, not intractable, unspecified chronicity pattern Procedures CT Head Milka Dowd MD Phone: tel: fax: [email or web address] [address] [address] Phone: tel: Referral ID Status Reason Start Date Expiration Date Visits Re quested Visits Authorized [id number] Closed 05/21/2019 06/20/2019 1 1 Encounter Details Date Type Department Care Team ([facility] st Contact Info) Description 05/21/2019 Ancillary Orders Virtual Department [address] [place] [address] Milka Dowd MD [address] [place] [address] [email or web address] Injury of head, initial encounter; Post-traumatic headache, not intractable, unspecified chronicity pattern Social History Tobacco Use Types Packs/Day Years [...] Description 01/29/2025 2:20 PM EST Office Visit [facility] [address] [place] [address] 3rd Floor, [address] [place] [address] Gabino Mcgiure MD 22 [facility], [address] [address] [email or web address] documented as of this encounter Results * CT HEAD WITHOUT CONTRAST (05/21/2019 2:21 PM EDT) Anatomical Region Laterality Modality Head Computed Tomogra phy 05/21/2019 2:43 PM EDT Impressions 05/21/2019 2:48 PM EDT IMPRESSION: No evidence of intracranial hemorrhage, extra-axial fluid collection or acute territorial infarct. Small left parietal scalp hematoma with adjacent surgical skin lidia. POS: [id number] Narrative 05/21/2019 2:[address] HEAD WITHOUT CONTRAST CLINICAL HISTORY: r/o bleed w/o contrast . The patient reports an injury which happened Bridger night. TECHNIQUE: Noncontrast head CT using helical technique and reconstructed in three planes. CT Dose: CTDIvol Head: mGy, DLP Head: mGy*cm. COMPARISON: None. FINDINGS: BRAIN and EXTRA-AXIAL SPACES: No parenchymal hemorrhage, midline shift or mass effect. Osborne-white matter differentiation is well preserved. No acute infarct. Ventricles, sulci and basilar cisterns are normal. No white matter lesions. No subarachnoid hemorrhage, subdural or epidural collections. CALVARIUM, SKULL BASE AND SOFT TISSUES: No displaced calvarial fracture. Mucosal thickening is seen in the left maxillary sinus. The remainder the visualized paranasal sinuses and mastoid air cells are well aerated. Visualized orbits and globes are intact. Surgical skin lidia are seen over the left parietal region. There is a small adjacent scalp hematoma. Procedure Note Rosalva Kunz MD - 05/21/2019 CT HEAD WITHOUT CONTRAST CLINICAL HISTORY: r/o bleed w/o contrast . The patient reports an injurywhich happened Saturday. TECHNIQUE: Noncontrast head CT using helical technique and reconstructedin three planes. CT Dose: CTDIvol Head: mGy, DLP Head: mGy*cm. COMPARISON: None. FINDINGS: BRAIN and EXTRA-AXIAL SPACES: No parenchymal hemorrhage, midline shift or mass effect. Osborne-white matterdifferentiation is well preserved. No acute infarct. Ventricles, sulci and basilar cisterns are normal. No white matter lesions. No subarachnoid hemorrhage, subdural or epidural collections. CALVARIUM, SKULL BASE AND SOFT TISSUES: No displaced calvarial fracture. Mucosal thickening is seen in the left maxillary sinus. The remainder thevisualized paranasal sinuses and mastoid air cells are well aerated. Visualized orbits and globes are intact. Surgical skin lidia are seen over the left parietal region. There is asmall adjacent scalp hematoma. IMPRESSION: IMPRESSION: No evidence of intracranial hemorrhage, extra-axial fluid collection oracute territorial infarct. Small left parietal scalp hematoma with adjacent surgical skin lidia. POS: [id number] us Milka Dowd MD IMG CT HEAD/NECK Final Resu lt documented in this encounter Visit Diagnoses Diagnosis Injury of head, initial encounter Post-traumatic headache, not intractable, unspecified chronicity pattern Injury of head, initial encounter Post-traumatic headache, not intractable, unspecified chronicity pattern documented in this encounter Care Teams Curriculum Development Manager Relationship Specialty Start Date End Date Milka Dowd MD [email or web address] PCP - General 12/24/16 11/13/19 Bryson Henderson MD [address] [place] [address] Orthopedics Sports [facility], [place] [address] [email or web address] PCP - General Internal Medicine 11/14/19 12/07/19 Milka Dowd MD [email or web address] PCP - General Family Medicine 12/08/19 10/21/23 Milka Dowd MD [address] [place] [phone] [email or web address] PCP - General Family Medicine 10/22/23 07/08/24 Bryson Henderson MD [address] [place] [address] [email or web address] PCP - General Internal Medicine 07/09/24 Milka Dowd MD [email or web address] Historical LMR Provider 12/29/16 Opal Henry MD [address] [place] [address] Orthopedics [facility], [facility] [place] [address] [email or web address] Historical LMR Provider 12/29/16 documented as of this encounter Additional Source Comments The information contained in this document represents components of the legal health record. It is not the complete legal health record.[facility]
--- OUTSIDE RECORDS SUMMARY | 2024-12-02 20:18 | XMS_ITS | Encounter Summary ---
Author Organization [facility] Address [address] [place] [address] Phone Care Team Providers Care Rug Drying Machine Operator Name Role Phone Milka Dowd MD Unavailable [phone] Bryson Henderson MD Primary Care Provider [phone] Encounter Details Date Type Department Care Team (Late st Contact Info) Description 08/07/2024 Procedure Pass [facility], Ct Scan - [address] [address] Social History Tobacco Use Types Packs/Day Years Used Date Smoking Tobacco: Former Cigarettes Q uit: 1999 Smokeless Tobacco: Never Alcohol Use Standard Drinks/Week [...] file Not on file Not on file documented as of this encounter Plan of Treatment Upcoming Encounters Date Type Department Care Team (Late st Contact Info) Description 01/29/2025 2:20 PM EST Office Visit [facility] [address] [place] [address] 3rd Floor, [address] [place] [address] Gabino Mcguire MD [address] [address] [email or web address] documented as of this encounter Visit Diagnoses Not on filedocumented in this encounter Additional Health Concerns Assessment Noted Time PHQ-9 Depression Total Score: 1 12/12/19 24 10:07 AM EDT documented as of this encounter Care Teams Rug Drying Machine Operator Relationship Specialty Start Date End Date Bryson Henderson MD [address] [place] [address] PCP - General Internal Medicine 07/09/24 Milka Dowd MD Historical LMR Provider 12/29/16 documented as of this encounter Additional Source Comments The information contained in this document represents components of the legal health record. It is not the complete legal health record.[facility]
== END ==
LOC: HO.SL 19:30
PROVIDERS: Visit Provider Physician Assistant Medical
DX: G47.19 Other hypersomnia (principal); Z95.1 Presence of aortocoronary bypass graft
CPT/HCPCS: 95810

== ENCOUNTER → 2024-12-02 20:19 | Outpatient (BNV) | payer BC, SELFPAY | PROVIDERS: Visit Provider Psychiatry & Neurology Neurology | DX: G47.33 Obstructive sleep apnea (adult) (pediatric) (principal) | CPT/HCPCS: 95811 ==

== ENCOUNTER 2024-12-23 07:50 | Outpatient (AMB) | payer BC, SELFPAY ==
--- OUTSIDE RECORDS SUMMARY | 2023-12-11 12:20 | XMS_ITS ---
Author Organization [facility] Address [address] [place] [phone] Care Team Providers Care Plumbing Contractor Name Role Phone Bryson Henderson MD Primary Care Provider Cam Mccabe [phone] REASON FOR VISIT Patient presents today for celiac disease Encounters Encounter Location Date Provider Diagnosis [facility] [address] [facility] [address] [address] [place] [phone] 12/11/2023 Cam Santizo Plan Of Treatment Next Appt Details Provider Name:Cam Santizo , 12/21/2025 09:10:00 AM, [address] [facility] [address], [address], [place], [address], Progress Notes * GONZALO CARTERDOB:1970 (54 yo M)Acc No.[id number]:12/11/2023 Progress Notes Patient: Cristian BRINKMilena GONZALO Turner Provider: Sriram Santizo MD :1970 A ge:53 Y S ex:Male Date:12/11/2023 Address:[address] [place] [address] Pcp:Bryson Henderson MD Subjective: * Chief Complaints: [...] Date: 1 Generated for Thony baeza/Hugo/Margot on: 07:53 AM EDT
--- OUTSIDE RECORDS SUMMARY | 2024-12-17 05:00 | XMS_ITS ---
Author Organization [facility] Address [address] [place] [address] Care Team Providers Care Gear Machine Operator General Name Role Phone Bryson Henderson MD Primary Care Provider Cam Mccabe [phone] Allergies Allergen (clinical drug ingredient) Drug/Non Drug Allergy documented on EMR Reaction Allergy Type Onset Date Status Gluten Gluten Unknown Allergy Active cats (uncoded) Unknown Allergy Activ e REASON FOR VISIT Patient presents today for celiac disease Medications Medication SIG (Take, Route, Frequency, Duration) Notes Start Date End Date Status Losartan Potassium-HCTZ 100-25 MG Oral; Duration: 90 Not-Takin g Docusate Sodium 100 MG TAKE 1 CAPSULE BY MOUTH TWICE DAILY NEEDED FOR CONSTIPATION Oral; Duration: 30 Not-Taking Rosuvastatin Calcium 20 MG 1 tablet Orally Once a day Active Losartan Potassium 50 MG 1 tablet Orally Once a day Active amLODIPine Besylate 5 MG 1 tablet Orally Once a day Active Aspirin prn if headache Not- Taking Dicyclomine HCl 10 MG TAKE 1 TO 2 CAPSUL ES BY MOUTH THREE TIMES DAILY 15 TO 30 MINUTES BEFORE MEALS; Duration: 15 Not-Taking Metoprolol Succinate ER 25 MG Oral; Duration: 90 Not-Takin g Atorvastatin Calcium 40 MG Oral; Duration: 90 Not-Takin g Aspirin Low Dose 81 MG TAKE 1 TABLET BY MOUTH DAILY Oral; Duration: 90 Active FeroSul 325 (65 Fe) MG TAKE 1 TABLET BY MOUTH THREE TIMES DAILY Oral; Duration: 30 Not-Taking Social History AUDIT-C (Standard) Question Answer Notes Did you have a drink containing alcohol in the p ast year? No Points 0 Interpretation Negative Section Notes: Nonsmoker; no sig alcohol Vital Signs Temperature 97.3 degrees Fahrenheit 12/18/19 25 Blood pressure systolic 001 mm Hg 12/18/19 25 Blood pressure diastolic 01 mm Hg 025 Height 70 in 12/17/2024 Weight 227.3 lbs 12/17/2024 BMI 32.61 kg/m2 12/17/2024 Encounters Encounter Location Date Provider Diagnosis [facility] [address] [place] [address] 12/17/2024 Cam Santizo Celiac disease K90.0 Assessments Encounter Date Diagnosis (ICD Code) Assessment Notes Treatment Notes Treatment Clinical Notes Section Notes 12/17/2024 Celiac disease (ICD-10 - K90.0) Try to stay on a Gluten-free/La ctose-free diet Plan Of Treatment Treatment Notes Assessment Notes Celiac disease Try to stay on a Glu ten-free/Lactose-free diet Next Appt Details Follow Up: 1 Year, Reason: Provider Name:Cam Carrillo Sukhdev , 12/21/2025 09:10:00 AM, [address] [place] [address], [address], [place], [address], Progress Notes * BRENDA CARTERMORIAH TurnerDOB:1970 (54 yo M)Acc No.[id number]:12/17/2024 Progress Notes Patient: GONZALO PACK Provider: Sriram Santizo MD :1970 A ge:54 Y S ex:Male Date:12/17/2024 Address:[address] [place] [address] Pcp:Bryson Henderson MD Subjective: * Chief Complaints: * 1 . Patient presents today for celiac disease. * Medical History: D enies AL,DM,CVA,Lung disease,renal disease, Sigmoid diverticulitis in 10/2015-documented on a CAT scan at [facility]-treated with outpatient antibiotics, Kidney stone 2019, Colonoscopy 10/2016 with only hyperplastic polyps removed, Lactose intolerance, Presumed IBS-neg celiac disease labs in 2015, Celiac disease diagnosed by duodenal biopsies in October of 2021. There was moderate villous blunting and increased intraepithelial lymphocytes noted. Routine laboratories for celiac disease were negative but a [employer] panel was positive, including genetic haplotype testing(scanned in to the documents section), Upper endoscopy in October of 2021 also had gastric biopsies negative for H. pylori, as well as the above positive duodenal biopsies for celiac disease, Abdominal ultrasound October 2021 revealed fatty liver but was negative for gallstones., Colonoscopy October 2021 was negative for polyps, inflammatory bowel disease, and microscopic colitis, Coronary artery disease with a three-vessel bypass at the end of October,. He did not have a AL, Sleep apnea-diagnosed 2024- waiting for his CPAP machine as of the 12/2024 OV. * Surgical History: A nal fissure treated with sphincterotomy by Dr. Aparicio in fall , 3V CABG 10/2023 . * Family History: F ather: alive, diagnosed with HTN (hypertension). M other: , diagnosed with HTN (hypertension). NO family Hx of liver or colon cancer. * Social History: T obacco Use: T obacco Use/Smoking P atient is a: former smoker , How long has it been since you last smoked?: > 10 years. M iscellaneous: M arital status: . Occupation: Sales. D rug/Alcohol: A MICHELLE-C (Standard) D id you have a drink containing alcohol in the past year? N o,?Points 0 , I nterpretation N egative. N onsmoker; no sig alcohol. * Medications: T aking Rosuvastatin Calcium 20 MG Tablet 1 tablet Orally Once a day , Taking Losartan Potassium 50 MG Tablet 1 tablet Orally Once a day , Taking amLODIPine Besylate 5 MG Tablet 1 tablet Orally Once a day , Taking Aspirin Low Dose 81 MG Tablet Delayed Release TAKE 1 TABLET BY MOUTH DAILY Oral , Not-Taking/PRN FeroSul 325 (65 Fe) MG Tablet TAKE 1 TABLET BY MOUTH THREE TIMES DAILY Oral , Not-Taking/PRN Metoprolol Succinate ER 25 MG Tablet Extended Release 24 Hour Oral , Not-Taking/PRN Atorvastatin Calcium 40 MG Tablet Oral , Not-Taking/PRN Aspirin prn if headache , Not- Taking/PRN Dicyclomine HCl 10 MG Capsule TAKE 1 TO 2 CAPSULES BY MOUTH THREE TIMES DAILY 15 TO 30 MINUTES BEFORE MEALS , Not-Taking/PRN Losartan Potassium-HCTZ 100-25 MG Tablet Oral , Not-Taking/PRN Docusate Sodium 100 MG Capsule TAKE 1 CAPSULE BY MOUTH TWICE DAILY NEEDED FOR CONSTIPATION Oral , Medication List reviewed and reconciled with the patient * Allergies: c ats, Gluten. Objective: * Vitals: W t:227.3lbs, Ht: 70 in, BMI:32.61Index, BP:001/01mm Hg, Temp:97.3, Wt-k.1. Assessment: * Assessment: 1. C eliac disease - K90.0 (Primary) Plan: * Treatment: * Preventive Medicine: Counseling: C are goal follow-up plan: A stephane Normal BMI Follow-up D ietary management education, guidance, and counseling, B AL management provided Y es. * Follow Up: 1 Year * * The named appointment provid er may or may not be the originator of this progress note, and it is not deemed complete until electronically signed by the appointment provider. Sign off status: Pending * Provider: Sriram Santizo MD Date: Generated for Thony baeza/Hugo/Margot on: 07:53 AM EDT
[2024-12-23 07:51] VITALS: BP 130/80; PULSE 77; O2SAT 97; BMI 40.0
--- NOTE | 2024-12-23 07:51 | MHC.OFFVIS ---
Vital Signs 12/23/24 07:51 Height 5 ft 3 in Weight 226 lb BMI 40.0 BP 130/80 Blood Pressure Location Lt brachial Position Sitting Pulse 77 Pulse Source Pulse Oximeter Pulse Oximetry (%) 97 Oxygen Delivery Method Room Air Intake Visit Reasons: Follow up [facility] Consultant Required: No Accompanied by: Self / Same As Patient Allergies cat dander Allergy (Unknown, Verified 12/23/24 08:07) Unknown lactose Adverse Reaction (Unknown, Verified 12/23/24 08:07) Unknown HPI Comments Details: 54 year old male referred to us for a sleep apnea evaluation by his PCP Dr. Durant. 2024 In lab titration c/w AHI of 64 and oxygen desaturation to <88% for 2 min. Obstructive and central apneas were noted.Will start pt on cpap [id number] and monitor for compliance. He snores loudly and gurgles for air and his has to nudge him to wake up. He had a CABG procedure on Nov 08, 2023. He goes to bed at 10:30 and gets up at 6am.He goes to the bathroom at least 5x per night. 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 He feels chronically fatigue. Denies morning headaches. Denies bruxism, and or clenching his jaw. He uses a mouth guard at night which helps decrease the snoring. His memory, and mood are stable, though sometimes gets anxious. He denies RLS symptoms, denies burning, tingling and neuropathy. He notices moderate muscle twitching, mainly in calves. His diet is okay, he walks daily from 15min to an hour depending on the pain level due to a recent groin injury. Today he notices BP is slightly elevated 130/96, he is on amlodipine 10mg po, will try to take the amlodipine 5mg in the AM and 5mg in the PM, to see if that improves his BP. He denies smoking and alcohol use is socially. He would like to have an in lab sleep study due to his cardiovascular symptoms. [facility] Medical History Hiatal hernia Anal fissure HTN (hypertension) IBS (irritable bowel syndrome) Renal calculi Diverticulitis Surgical History History of esophagogastroduodenoscopy (EGD) H/O colonoscopy Social History Household Members: Spouse Patient Tobacco Use Status: Former Tobacco user Tobacco use type: Cigarette Years Smoked: 8 Physical Exam Vital Signs: Last Vital Signs Pulse 77 12/23/24 07:51 BP 130/80 12/23/24 07:51 Pulse Ox 97 12/23/24 07:51 Oxygen Delivery Method Room Air 12/23/24 07:51 BMI result Body Mass Index 40.0 Const General: cooperative, comfortable and anxious Nutritional Appearance: overweight Orientation/consciousness: patient oriented x3 HEENT Face and sinus: Yes face symmetric Teeth and gingiva: other (mallampti score is 3) Eyes Pupils: Equal, round and reactive pupils present Resp Effort & Inspection: normal respiratory effort and able to speak in complete sentences Neuro General: patient oriented x3 and moves all extremities Cranial nerves: Yes Facial sensation intact/muscles of mastication intact, Yes Equal, round and reactive pupils present, Yes Normal accommodation reflex present, Yes Normal facial strength present, Yes Midline tongue present, Yes Ability to bilaterally rotate head present and Yes Ability to bilaterally elevate shoulders present Cognition (Neuro): normal cognition Gait exam (Neuro): Normal gait present Motor exam (neuro): 5/5 motor strength present throughout and Normal motor muscle tone present throughout Psych Appearance: grossly normal Mental Status: mental status grossly normal Thought process: Normal thought process present Thought content: Normal thought content present Results Reviewed Results Reviewed: In lab titration study Dec 23, 2024. 2024 In lab titration c/w AHI of 64 and oxygen desaturation to <88% for 2 min. Obstructive and central apneas were noted.Will start pt on cpap [id number] and monitor for compliance. Assessment & Plan Assessment & Plan (1) SHARAN (obstructive sleep apnea): Code(s): G47.33 - Obstructive sleep apnea (adult) (pediatric) Category: Medical (2) Central sleep apnea: Code(s): G47.31 - Primary central sleep apnea Category: Medical (3) Excessive daytime sleepiness: Code(s): G47.19 - Other hypersomnia Category: Medical Plan SHARAN and CSA will start pt on cpap therapy and monitor for compliance. Labs reviewed with pt F/U in 3 months Patient Instructions: Sleep Hygiene provided: set a scheduled bedtime and wake time to help regulate the circadian rhythm and balance the release of pituitary hormones. Sleep in a dark room, temperatures below 68 degrees, and no devices n bed. Limit caffeinated products 6 hours prior to bed, and limit fluids 2-4 hours prior to bed. Gentle night yoga, diffusing essential oils, and playing soft music can be relaxing. Coding Level of Care Code Est Pt Level 4 (66658) Diagnoses SHARAN (obstructive sleep apnea) G47.33 Central sleep apnea G47.31 Excessive daytime sleepiness G47.19
--- OUTSIDE RECORDS SUMMARY | 2024-12-23 07:53 | XMS_ITS | Patient Health Record ---
Author Organization [facility] Address [address] [place] [address] Care Team Providers Care Choir Leader Name Role Phone Bryson Henderson MD Primary Care Provider Unavailblaine e Cam Santizo Unavailable [phone] Allergies Allergen (clinical drug ingredient) Drug/Non Drug Allergy documented on EMR Reaction Allergy Type Onset Date Status Gluten Gluten Unknown Allergy Active cats (uncoded) Unknown Allergy Activ e Reason For Referral Reason [email or web address] Referring Provider First Name Bryson Referring Provider Last Name Beatriz Referring Provider Speciality Internal Medicine Referred Organization [facility] Referred Provider Cam Santizo Referred Address [address] [place] [address],[address],[place], [place],[address], Referred Provider Specialty Gastroenterology General Notes Anastasiia Hidalgo 2024 01:53:36 PM > requested [facility] referral from Dr. Bryson Henderson for office visit with Dr. Santizo on [phone] Referral Priority Routine Medications Medication SIG (Take, Route, Frequency, Duration) Notes Start Date End Date Status Aspirin prn if headache Not- Taking Dicyclomine HCl 10 MG TAKE 1 TO 2 CAPSUL ES BY MOUTH THREE TIMES DAILY 15 TO 30 MINUTES BEFORE MEALS; Duration: 15 Not-Taking Losartan Potassium-HCTZ 100-25 MG Oral; Duration: 90 Not-Takin g Docusate Sodium 100 MG TAKE 1 CAPSULE BY MOUTH TWICE DAILY NEEDED FOR CONSTIPATION Oral; Duration: 30 Not-Taking Rosuvastatin Calcium 20 MG 1 tablet Orally Once a day Active Losartan Potassium 50 MG 1 tablet Orally Once a day Active amLODIPine Besylate 5 MG 1 tablet Orally Once a day Active FeroSul 325 (65 Fe) MG TAKE 1 TABLET BY MOUTH THREE TIMES DAILY Oral; Duration: 30 Not-Taking Metoprolol Succinate ER 25 MG Oral; Duration: 90 Not-Takin g Atorvastatin Calcium 40 MG Oral; Duration: 90 Not-Takin g Aspirin Low Dose 81 MG TAKE 1 TABLET BY MOUTH DAILY Oral; Duration: 90 Active Immunizations Vaccine Route Administration Date Status Comme nts Influenza Unknown 11/30/2022 Administered Influenza Unknown 12/18/2023 Administered Influenza Unknown 02/28/2021 Refused Social History AUDIT-C (Standard) Question Answer Notes Did you have a drink containing alcohol in the p ast year? No Points 0 Interpretation Negative Section Notes: Nonsmoker; no sig alcohol Nonsmoker; no sig alcohol Nonsmoker; no sig alcohol Nonsmoker; no sig alcohol Nonsmoker; no sig alcohol Nonsmoker; no sig alcohol Problems Problem Type SNOMED Code ICD Code Onset Dates Problem Status W/U Status Risk Notes Problem Esophageal reflux (862597416) Esophageal reflux (K21.9) Active confirmed Problem Diarrhea (39869516) Diarrhea (R19.7) Active confirmed Problem Celiac disease (908199203) Celiac disease (K90.0) Active confirmed Problem Generalized abdominal pain (507029917) Generalized abdominal pain (R10.84) Active confirmed Problem Duodenitis (15277370) Duodenitis (K29.80) Active confirmed Problem Hemorrhage of rectum and anus (923109876) Rectal bleed (K62.5) Active confirmed Problem Computed tomography result abnormal (064614226) Abnormal CT scan, colon (R93.3) Active confirmed Problem Irritable bowel syndrome (21942391) Irritable bowel syndrome, unspecified type (K58.9) Active confirmed Problem Hemorrhagic diverticulitis (253393750) Diverticulitis large intestine w/o perforation or abscess w/bleeding (K57.33) Active confirmed Problem Diverticulosis of colon (629718721) Diverticulosis of colon (K57.30) Active confirmed Vital Signs Temperature 97.3 degrees Fahrenheit 12/17/2024 Blood pressure diastolic 01 mm Hg 12/17/2024 Height 70 in 12/17/2024 Blood pressure systolic 001 mm Hg 12/17/2024 Weight 227.3 lbs 12/17/2024 BMI 32.61 kg/m2 12/17/2024 Encounters Encounter Location Date Provider Diagnosis [facility] [address] [place] [address] 12/17/2024 Cam Santizo Celiac disease K90.0 Assessments Encounter Date Diagnosis (ICD Code) Assessment Notes Treatment Notes Treatment Clinical Notes Section Notes 12/17/2024 Celiac disease (ICD-10 - K90.0) Try to stay on a Gluten-free/La ctose-free diet Plan Of Treatment Pending Test Test Name [...] Name:Cam Santizo , 12/21/2025 09:10:00 AM, [address], [address], [place], [address], Insurance Providers Payer Name Payer Address Payer Phone Subscriber Number Group Number Insured Name Patient Relationship to Insured Coverage Start Date Coverage End Date [facility] [employer] CLAIMS [address] [place] [address] [phone] [id number] GONZALO CARTER Self - patient is the insured Medical (General) History Medical History History ICD Code Denies [place],DM,CVA,Lung disease,renal dise ase Sigmoid diverticulitis in 2015-documented on a CAT scan at [facility]-treated with outpatient antibiotics Kidney stone 2019 [...] of October,. He did not have a [place] Sleep apnea-diagnosed 2024- waiting for his CPAP machine as of the 12/2024 OV Surgical History Surgery Date(Month/Year) 3V CABG 10/2023 Anal fissure treated with sp hincterotomy by Dr. Aparicio in fall
--- OUTSIDE RECORDS SUMMARY | 2024-12-23 07:53 | XMS_ITS | Clinical Summary ---
Author Organization [facility] Address [address] [facility] [address] [place] [address] Phone Care Team Providers Care Manager Roofing Name Role Phone Milka Dowd MD Unavailable [phone] Bryson Henderson MD Primary Care Provider Allergies No known active allergies Medications amLODIPine (NORVASC) 5 MG tablet Take 1 tablet (5 mg total) by mouth daily. 90 tablet 3 06/01/2024 Active aspirin 81 MG EC tablet Take 1 tablet (81 mg total) by mouth daily. 90 tablet 3 11/03/2024 Active rosuvastatin (CRESTOR) 20 MG tablet Take 1 tablet (20 mg total) by mouth daily. 90 tablet 3 11/09/2024 Active Active Problems Problem Noted Date Diagnosed [...] Department Care Team Description 11/09/2024 Orders Only [facility] [address] Floor, [address] [place] [address] Gabino Mcguire MD S/P CABG x 3 (Primary Dx) 11/02/2024 Refill [facility] [address], [address] [place] [address] Gabino Mcguire MD Medication Refill 10/30/2024 Refill [facility] [address], [address] [place] [address] Gabino Mcguire MD Medication Refill from Last [...] Care Team (Late st Contact Info) Description 12/29/2024 9:20 AM EDT Office Visit [facility] [address], [address] [place], [place] [phone] Gabino Mcguire MD [address] [facility], [address] [place] [address] [email or web address] Health Maintenance Due Date Last Done Comments HEPATITIS C SCREENING 05/15/1989 HIV ONE-TIME SCREENING (18-65 YEARS) 05/15/1989 COLOGUARD 05/15/2016 COLONOSCOPY 05/15/2016 COLORECTAL CANCER SCREENING 05/15/2016 FIT TEST 05/15/2016 FOBT 05/15/2016 SIGMOIDOSCOPY 05/15/2016 VIRTUAL COLONOSCOPY 05/15/2016 PNEUMOCOCCAL VACCINES (50+ years) (1 of 1 - PCV) 05/15/2021 ZOSTER VACCINES (1 of 2) 05/15/2021 Adult Td,Tdap Booster 02/24/2022 02/25/2012 COVID-19 VACCINE (2 - season) 2024 06/23/2020 DEPRESSION SCREENING 12/11/2024 12/12/2023 SMOKING Hx and SMOKELESS TOBACCO SCREENING 08/07/2025 08/07/2024 SCREENING FOR DIABETES 10/21/2026 10/22/2023 RSV VACCINE (1 - 1-dose 75+ series) 05/15/2046 INFLUENZA VACCINE Completed 12/01/2024, , 02/27/2019, Additional history exists HEPATITIS A VACCINES Aged Out No long [...] topic Medical Devices Not on file Insurance [address] [address] [place] [address] [place] [address] [place] [address] [place] [address] Care Teams Manager Roofing Relationship Specialty Start Date End Date Bryson Henderson MD [address] [place] [address] [email or web address] PCP - General Internal Medicine 07/09/24 Milka Dowd MD Historical LMR Provider 12/29/16 Additional Source Comments The information contained in this document represents components of the legal health record. It is not the complete legal health record.[facility]
--- OUTSIDE RECORDS SUMMARY | 2024-12-23 07:54 | XMS_ITS | Encounter Summary ---
Author Organization [facility] Address [address] [facility] [address] [place] [address] Phone Care Team Providers Care Legal Support Manager Name Role Phone Milka Dowd MD Unavailable [phone] Opal Henry MD Unavailable [phone] Bryson Henderson MD Primary Care Provider [phone] Milka Dowd MD Primary Care Provider [phone] Milka Dowd MD Primary Care Provider [phone] Bryson Henderson MD Primary Care Provider [phone] Encounter Details Date Type Department Care Team (Latest Contact Info) Description 12/02/2019 Transcribe Orders Virtual Department [address] [place] [address] Etienne Elizabeth MD [address] [place] [address], [address] [address] [email or web address] Calculus of ureter (Primary Dx); Unspecified renal [...] Description 12/29/2024 9:20 AM EDT Office Visit [facility] [address] [facility] 3rd Floor, [address] [place] [address] Gabino Mcguire MD [address] [facility], [address] [place] [address] [email or web address] documented as of this encounter Results * [...] 3.Small postvoid bladder residual. Etienne Elizabeth MD [facility] Final Result documented in this encounter Visit Diagnoses Diagnosis Calculus of ureter- Primary Unspecified renal colic Calculus of kidney Calculus of ureter Unspecified renal colic Calculus of kidney documented in this encounter Care Teams Legal Support Manager Relationship Specialty Start Date End Date Bryson Henderson MD [address] [place] [address] [facility] Medicine, [place] [address] [email or web address] PCP - General Internal Medicine 11/14/19 12/07/19 Milka Dowd MD PCP - General Family Medicine 12/08/19 10/21/23 Milka Dowd MD [address] [place] [address] [email or web address] PCP - General Family Medicine 10/22/23 07/08/24 Bryson Henderson MD [address] [place] [address] [email or web address] PCP - General Internal Medicine 07/09/24 Milka Dowd MD Historical LMR Provider 12/29/16 Opal Henry MD [address] [place] [address] Orthopedics & Sports Medicine, [facility] [place] [address] [email or web address] Historical LMR Provider 12/29/16 documented as of this encounter Additional Source Comments The information contained in this document represents components of the legal health record. It is not the complete legal health record.[facility]
--- OUTSIDE RECORDS SUMMARY | 2024-12-23 07:54 | XMS_ITS | Encounter Summary ---
Author Organization [facility] Address [address] [facility] [address] [place] [address] Phone Care Team Providers Care Nitroglycerin Supervisor Name Role Phone Milka Dowd MD Unavailable [phone] Milka Dowd MD Primary Care Provider [phone] Bryson Henderson MD Primary Care Provider [phone] Reason for Referral * MRI/CAT Scan - Closed Specialty Diagnoses / Procedures Referred By Contursula houston Referred To Contact Radiology Diagnoses Abnormal stress test Procedures NC Myocardial Perfusion Pharmacologic Stress Multiple NC Myocardial Perfusion Exercise Multiple Luly Ramos PA [address] [place] [address] Phone: tel: fax: [email or web address] Referral ID Status Reason Start Date Expiration Date Visits Re quested Visits Authorized [id number] Closed 10/22/2023 12/20/2023 1 1 Encounter Details Date Type Department Care Team (Late st Contact Info) Description 10/25/2023 Ancillary Orders [facility] [address] [place] [address] 3rd Floor, [address] [place] [address] Luly Ramos PA [address] [place] [address] [email or web address] Abnormal stress test (Primary Dx) Social History [...] Description 12/29/2024 9:20 AM EDT Office Visit [facility] [address] [place] [address] 3rd Floor, [address] [place] [address] Gabino Mcguire MD [address] [place] [address], [address] [address] [email or web address] documented as of this encounter Results * NC Myocardial Perfusion Pharmacologic Stress Multiple (10/25/2023 1:44 PM EDT) [facility] Max Predicted Heart Rate 168 bpm Stress/rest [...] been arranged to undergo cardiac catheterization at [facility] in the coming days. Please see my [...] in SPECT format, reconstructed tomographically and compared [id number] in short axis, horizontal long axis and [...] of Tc99m Sestamibi by Jeet Bundy, the nuclear worker technician. 1. EKG: Baseline EKG showed sinus rhythm [...] [facility]. Please see my consultation note from this same date 10/24 for furtherdetails. us Luly SUERO NM CARDIAC Final Result documented in this encounter Visit Diagnoses Diagnosis Abnormal stress test- Primary Other nonspecific abnormal cardiovascular system function study Abnormal stress test- Primary Other nonspecific abnormal cardiovascular system function study documented in this encounter Care Teams Nitroglycerin Supervisor Relationship Specialty Start Date End Date Milka Dowd MD [address] [place] [address] [email or web address] PCP - General Family Medicine 10/22/23 07/08/24 Bryson Henderson MD [address] [place] [address] [email or web address] PCP - General Internal Medicine 07/09/24 Milka Dowd MD [email or web address] Historical LMR Provider 12/29/16 documented as of this encounter Additional Source Comments The information contained in this document represents components of the legal health record. It is not the complete legal health record.[facility]
--- OUTSIDE RECORDS SUMMARY | 2024-12-23 07:54 | XMS_ITS | Encounter Summary ---
Author Organization [facility] Address [address] [place] [address] Phone Care Team Providers Care Big 6 Dealer Name Role Phone Milka Dowd MD Unavailable [phone] Bryson Henderson MD Primary Care Provider [phone] Encounter Details Date Type Department Care Team (Late st Contact Info) Description 08/07/2024 Procedure Pass [facility], Ct Scan - [address] [address] Social History Tobacco Use Types Packs/Day Years [...] Description 12/29/2024 9:20 AM EDT Office Visit [facility] [address] [place] [address] 3rd Floor, [address] [place] [address] Gabino Mcguire MD [address] [address] [email or web address] documented as of this encounter Visit Diagnoses Not on filedocumented in this encounter Additional Health Concerns Assessment Noted Time PHQ-9 Depression Total Score: 1 12/12/19 24 10:07 AM EDT documented as of this encounter Care Teams Big 6 Dealer Relationship Specialty Start Date End Date Bryson Henderson MD [address] [place] [address] PCP - General Internal Medicine 07/09/24 Milka Dowd MD Historical LMR Provider 12/29/16 documented as of this encounter Additional Source Comments The information contained in this document represents components of the legal health record. It is not the complete legal health record.[facility]
--- OUTSIDE RECORDS SUMMARY | 2024-12-23 07:54 | XMS_ITS | Encounter Summary ---
Author Organization [facility] Address [address] [place] [address] Phone Care Team Providers Care Ebd Teacher Name Role Phone Milka Dowd MD Primary Care Provider [phone] Milka Dowd MD Unavailable [phone] Opal Henry MD Unavailable [phone] Bryson Henderson MD Primary Care Provider +- Milka Dowd MD Primary Care Provider [phone] Milka Dowd MD Primary Care Provider [phone] Bryson Henderson MD Primary Care Provider [phone] Reason for Referral * MRI/CAT Scan - Closed Specialty Diagnoses / Procedures Referred By Contac t Referred To Contact Radiology Diagnoses Injury of head, initial encounter Post-traumatic headache, not intractable, unspecified chronicity pattern Procedures CT Head Milka Dowd MD Phone: tel: fax: [email or web address] [address] [address] Phone: tel: Referral ID Status Reason Start Date Expiration Date Visits Re quested Visits Authorized [id number] Closed 05/21/2019 06/20/2019 1 1 Encounter Details Date Type Department Care Team ([facility] st Contact Info) Description 05/21/2019 Ancillary Orders Virtual Department [address] [place] [address] Milka Dowd MD [address] [place] [address] [email or web address] Injury of head, initial encounter; Post-traumatic headache, [...] Department Care Team (Late Contact Info) Description 12/29/2024 9:20 AM EDT Office Visit [facility] [address] [place] [address] [address] [facility], [address] [place] [address] Gabino Mcguire MD [address] [place] [address] [email or web address] documented as of this encounter Results * CT HEAD WITHOUT CONTRAST (05/21/2019 2:21 PM EDT) Anatomical Region Laterality Modality Head Computed Tomogra phy 05/21/2019 2:43 PM EDT Impressions 05/21/2019 2:48 PM EDT IMPRESSION: No evidence of intracranial hemorrhage, extra-axial fluid collection or acute territorial infarct. Small left parietal scalp hematoma with adjacent surgical skin lidia. POS: [id number] Narrative 05/21/2019 2:[address] HEAD WITHOUT CONTRAST CLINICAL HISTORY: r/o bleed w/o contrast . The patient reports an injury which happened Saturday night. TECHNIQUE: Noncontrast head CT using helical [...] hematoma with adjacent surgical skin lidia. POS: [id number] us Milka Dowd MD IM CT HEAD/NECK Final Resu lt documented in this encounter Visit Diagnoses Diagnosis Injury of head, initial encounter Post-traumatic headache, not intractable, unspecified chronicity pattern Injury of head, initial encounter Post-traumatic headache, not intractable, unspecified chronicity pattern documented in this encounter Care Teams Ebd Teacher Relationship Specialty Start Date End Date Milka Dowd MD [email or web address] PCP - General 12/24/16 11/13/19 Bryson Henderson MD [address] [place], [place] [address]s [facility], [place] [address] [email or web address] PCP - General Internal Medicine 11/14/19 12/07/19 Milka Dowd MD [email or web address] PCP - General Family Medicine 12/08/19 10/21/23 Milka Dowd MD [address] [place] [phone] [email or web address] PCP - General Family Medicine 10/22/23 07/08/24 Bryson Henderson MD [address] [place] [address] [email or web address] PCP - General Internal Medicine 07/09/24 Milka Dowd MD [email or web address] Historical LMR Provider 12/29/16 Opal Henry MD [address] [place] [address], [place] [address] Historical LMR Provider 12/29/16 documented as of this encounter Additional Source Comments The information contained in this document represents components of the legal health record. It is not the complete legal health record.[facility]
--- OUTSIDE RECORDS SUMMARY | 2024-12-23 07:54 | XMS_ITS | Encounter Summary ---
Author Organization [facility] Address [address] [place] [address] Phone Care Team Providers Care Medical Tech Name Role Phone Milka Dowd MD Unavailable [phone] Opal Henry MD Unavailable [phone] Bryson Henderson MD Primary Care Provider +- Milka Dowd MD Primary Care Provider [phone] Milka Dowd MD Primary Care Provider [phone] Bryson Henderson MD Primary Care Provider + Encounter Details Date Type Department Care Team (Late st Contact Info) Description 11/14/2019 Procedure Pass [facility], Ct Scan - [address] [address] Social History Tobacco Use Types Packs/Day Years [...] Description 12/29/2024 9:20 AM EDT Office Visit [facility] [address] [place] [address] [address]rd Floor, [address] [place] [address] Gabino Mcguire MD [address] [facility], [address] [address] [email or web address] documented as of this encounter Visit Diagnoses Not on filedocumented in this encounter Care Teams Medical Tech Relationship Specialty Start Date End Date Bryson Henderson MD [address] [place] [address] Orthopedics [facility], [place] [address] [email or web address] PCP - General Internal Medicine 11/14/19 12/07/19 Milka Dowd MD PCP - General Family Medicine 12/08/19 10/21/23 Milka Dowd MD [address] [place] [phone] PCP - General Family Medicine 10/22/23 07/08/24 Bryson Henderson MD [address] [place] [address] [email or web address] PCP - General Internal Medicine 07/09/24 Milka Dowd MD Historical LMR Provider 12/29/16 Opal Henry MD [address] [place] [address] [facility], [place] [address] Historical LMR Provider 12/29/16 documented as of this encounter Additional Source Comments The information contained in this document represents components of the legal health record. It is not the complete legal health record.[facility]
== END 2024-12-23 08:47 | disposition home or self-care (01) ==
LOC: HO.HSMC 07:50
PROVIDERS: PCP Internal Medicine; Visit Provider Physician Assistant Medical
DX: G47.33 Obstructive sleep apnea (adult) (pediatric) (principal); G47.31 Primary central sleep apnea; G47.19 Other hypersomnia
CPT/HCPCS: 99214